=== PATIENT | male | born 1985 | race Caucasian/White ===

== ENCOUNTER 2021-04-26 08:10 | Emergency (ER) | payer MEDICARE, MEDICAID, SELFPAY ==
--- NOTE | ~2021-04-26 | XR_ITS ---
EXAMINATION: RIGHT HAND/WRIST, RIGHT ANKLE AND RIGHT FOOT. CLINICAL INFORMATION: Atraumatic pain COMPARISON: None TECHNIQUE: 4 views right hand/wrist. 3 views right foot. 2 views right ankle FINDINGS: Right hand/wrist: There is no acute fracture or dislocation. The PIP, DIP and MCP joints are normal. The intercarpal joints including the radioulnar carpal joint is normal. No bony abnormality. The soft tissues are normal. The scaphoid bone is normal. Right foot: There is no visible acute fracture, dislocation or subluxation seen. The joint spaces are maintained normal. The soft tissues are normal. Right ankle: There is no visible acute fracture, dislocation or subluxation. There is mild swelling along the talonavicular joint. XR/XR hand wrist RT IMPRESSION: Unremarkable right hand and wrist. The scaphoid bone is normal. Unremarkable right foot. Unremarkable right ankle exam except for small dorsal talonavicular spurring.
--- NOTE | ~2021-04-26 | XR_ITS ---
EXAMINATION: RIGHT HAND/WRIST, RIGHT ANKLE AND RIGHT FOOT. CLINICAL INFORMATION: Atraumatic pain COMPARISON: None TECHNIQUE: 4 views right hand/wrist. 3 views right foot. 2 views right ankle FINDINGS: Right hand/wrist: There is no acute fracture or dislocation. The PIP, DIP and MCP joints are normal. The intercarpal joints including the radioulnar carpal joint is normal. No bony abnormality. The soft tissues are normal. The scaphoid bone is normal. Right foot: There is no visible acute fracture, dislocation or subluxation seen. The joint spaces are maintained normal. The soft tissues are normal. Right ankle: There is no visible acute fracture, dislocation or subluxation. There is mild swelling along the talonavicular joint. XR/XR foot RT 2V IMPRESSION: Unremarkable right hand and wrist. The scaphoid bone is normal. Unremarkable right foot. Unremarkable right ankle exam except for small dorsal talonavicular spurring.
--- NOTE | ~2021-04-26 | XR_ITS ---
EXAMINATION: RIGHT HAND/WRIST, RIGHT ANKLE AND RIGHT FOOT. CLINICAL INFORMATION: Atraumatic pain COMPARISON: None TECHNIQUE: 4 views right hand/wrist. 3 views right foot. 2 views right ankle FINDINGS: Right hand/wrist: There is no acute fracture or dislocation. The PIP, DIP and MCP joints are normal. The intercarpal joints including the radioulnar carpal joint is normal. No bony abnormality. The soft tissues are normal. The scaphoid bone is normal. Right foot: There is no visible acute fracture, dislocation or subluxation seen. The joint spaces are maintained normal. The soft tissues are normal. Right ankle: There is no visible acute fracture, dislocation or subluxation. There is mild swelling along the talonavicular joint. XR/XR ankle RT 2V IMPRESSION: Unremarkable right hand and wrist. The scaphoid bone is normal. Unremarkable right foot. Unremarkable right ankle exam except for small dorsal talonavicular spurring.
[2021-04-26 08:13] VITALS: BP 124/73; PULSE 76; RESP 18; TEMP 36.7; O2SAT 98; BMI 25.8
--- NOTE | 2021-04-26 08:26 | ED_ITS ---
HPI - General Adult General Chief complaint: General Medical Stated complaint: right leg pain Time Seen by Provider: 04/26/21 08:17 Source: patient and EMS Mode of arrival: EMS Limitations: no limitations History of Present Illness HPI narrative: 35-year-old male with a past medical history of MS followed by a neurologist at [facility] presents today with right lower extremity pain. Patient tells me today wall walking he missed a step causing an injury to his right heel and ankle. He denies any fall. Denies head injury or loss of consciousness. Initially was complaining of weakness to nursing staff but denies any weakness, numbness or tingling. He is scheduled for a infusion 04/30 for his MS medication but is unsure of name. His neurologist is Jenaro Hernandez. Also complaining of right hand and wrist pain which he has had for years which is worsened in the morning when he wakes up and worsened by cold weather. He denies any numbness, tingling or weakness. Denies any injury or trauma. Related Data Allergies Allergy/AdvReac Type Severity Reaction Status Date / Time No Known Allergies Allergy Unverified 07/17/20 19:15 [No Known Allergies*] Review of Systems Review of Systems: Yes all other systems are reviewed and are negative Constitutional: Constitutional: Reports no additional constitutional complaints, Denies body ache(s), Denies chills, Denies fever(s), Denies headache(s) and Denies weakness Eyes: Eyes: Reports no additional eye complaints and Denies change in vision ENT: Reports system reviewed and no additional complaints, except as documented, Denies dizziness, Denies headache(s), Denies nasal congestion, Denies nasal discharge and Denies neck pain Cardiovascular: Cardiovascular: Reports no additional cardiovascular complaints, Denies chest pain, Denies leg edema and Denies dyspnea Respiratory: Respiratory: Reports no additional respiratory complaints, Denies cough and Denies dyspnea Gastrointestinal: Gastrointestinal: Reports no additional gastrointestinal complaints, Denies abdominal pain, Denies diarrhea, Denies nausea and Denies vomiting Genitourinary: Genitourinary: Denies urinary incontinence Musculoskeletal: Musculoskeletal: Reports no additional musculoskeletal complaints, Denies back pain, Reports arthralgias, Denies joint swelling, Denies limited range of motion, Denies neck pain, Denies numbness and Denies tingling Integumentary/Breasts: Skin/Breast: Reports system reviewed and no additional complaints, except as docu and Denies rash Neurologic: Reports system reviewed and no additional complaints, except as documented, Denies Abnormal speech present, Denies dizziness, Denies headache(s), Denies numbness, Denies tingling and Denies weakness PMFSH Past Medical History Attestation statement: The following information was validated with the patient. Source: old records reviewed and nursing notes reviewed Medical History Multiple sclerosis Social History Social History Alcohol intake: never Smoked in Last 30 Days: No Use of substances other than those prescribed or required for medical reasons: No Advance Directives: No Advance Directives Information Provided: No Physical Exam Vital Signs: Vital Signs: Last Vital Signs Temp 98.0 F 04/26/21 08:13 Pulse 76 04/26/21 08:13 Resp 18 04/26/21 08:13 BP 124/73 04/26/21 08:13 Pulse Ox 98 04/26/21 08:13 Body Mass Index 25.8 Const: General: cooperative, healthy appearing, comfortable and no acute distress Orientation/consciousness: patient oriented x3 Limitations: no limitations HENMT: Head: Yes normal to inspection Ears: hearing grossly normal bilaterally General nose exam: Normal external nose present Face and sinus: Yes normal facial exam Mouth: Normal oral and palatal mucosa present Throat: Yes posterior oropharynx normal Eyes: General: appearance normal, both eyes and all related structures Pupils: Equal, round and reactive pupils present Neck: Neck: Yes normal visual inspection Chest: Chest palpation & inspection: normal inspection of the chest Resp: Effort & Inspection: normal respiratory effort Auscultation: clear to auscultation bilaterally Cardio: Rate: regular rate Rhythm: regular rhythm Peripheral pulses: Peripheral pulses 2+ throughout GI: Inspection: Yes normal to inspection Palpation (GI): Soft to palpation and nontender Auscultation: normal bowel sounds Back/Spine/Pelvis: Thoracic/Lumbar Spine: thoracic and lumbar spine normal to inspection Skin: General skin exam: no rashes or lesions noted Neuro: General: patient oriented x3, no focal motor deficits and normal sensation to monofilament Cranial nerves: Yes CN's II-XII intact bilaterally, Yes Equal, round and reactive pupils present, Yes Bilaterally intact EOM present, Yes Nystagmus not present, Yes Normal facial strength present and Yes Midline tongue present Cognition (Neuro): normal cognition Speech: No Ab normal speech present Gait exam (Neuro): Normal gait present Motor exam (neuro): 5/5 motor strength present throughout Sensory Exam: Normal double simultaneous stimulation for sensation Extrem: Other: To the right anterior wrist there is tenderness with no appreciable swelling or deformity or warmth or redness. No weakness. FROM. Sensation intact. to the right heel and medial ankle there is tenderness with no swelling, deformity, warmth, redness. FROM. Sensation intact. General: Yes normal to inspection Course Course Course Narrative: 35-year-old male here with complaints of right ankle and heel pain after an injury which occurred this morning. Also complaining of acute on chronic right hand and wrist pain which he has had for quite some time with no previous injury. Normal neuro exam. NO weakness. Will check imaging. 0940-Imaging unremarkable. Likely sprain right foot/ankle. Right wrist film negative. ?arthritis but chronic >years. Recommended f/u with outpatient providers. Reviewed worrisome signs and symptoms and when to return to the emergency department. Comfortable discharge home. Procedures Procedure Narrative Procedure Narrative: caesar wrap right ankle/foot Medical Decision Making Medical Records Medical records reviewed: Yes I reviewed the patient's medical records. Lab Data Lab results reviewed: Yes I reviewed the patient's lab results. Imaging Data right/hand wrist: Attestation: I personally reviewed and interpreted this imaging study as follows: Radiologist's impression: FINDINGS: Right hand/wrist: There is no acute fracture or dislocation. The PIP, DIP and MCP joints are normal. The intercarpal joints including the radioulnar carpal joint is normal. No bony abnormality. The soft tissues are normal. The scaphoid bone is normal. right ankle/foot xray: Attestation: I personally reviewed and interpreted this imaging study as follows: Radiologist's impression: Right foot: There is no visible acute fracture, dislocation or subluxation seen. The joint spaces are maintained normal. The soft tissues are normal. Right ankle: There is no visible acute fracture, dislocation or subluxation. There is mild swelling along the talonavicular joint. Discharge Plan Discharge Clinical Impression: Chronic wrist pain Ankle sprain Qualifiers: Encounter type: initial encounter Laterality: right Foot sprain Qualifiers: Encounter type: initial encounter Laterality: right Qualified Code(s): S93.601A - Unspecified sprain of right foot, initial encounter Patient Disposition: Home, Self-Care Instructions: Ankle Sprain (ED), Foot Sprain (ED), Arthralgia (ED) Additional Instructions: Heat or ice Gentle stretching Caesar wrap for comfort Follow-up with your providers Referrals: [facility] [Primary Care Provider] - 2 days Interventions: ED Discharge Assessment Last Done: 04/26/21 09:48 Discharge Date/Time: 04/26/21 09:53
== END 2021-04-26 09:53 | disposition home or self-care (01) ==
PROVIDERS: Emergency Provider Emergency Medicine
DX: S93.601A Unspecified sprain of right foot, initial encounter (principal); G89.29 Other chronic pain; M25.531 Pain in right wrist; M79.641 Pain in right hand; G35 Multiple sclerosis; X58.XXXA Exposure to other specified factors, initial encounter; Y93.01 Activity, walking, marching and hiking; Y92.9 Unspecified place or not applicable; Y99.9 Unspecified external cause status
CPT/HCPCS: 73110; 73130; 73600; 73620; 99284; 99285

== ENCOUNTER 2024-04-13 14:57 | Outpatient (REF) | payer MEDICARE, MEDICAID, SELFPAY ==
[2024-04-13 16:17] LABS: MANUAL DIFF FLAG NO
[2024-04-13 16:24] LABS: Basophils Absolute Auto 0.1 X10*3/uL (0.0-0.2); Basophils Percent Auto 0.8 % (0-2); Eosinophils Percent Auto 0.5 % (0-4); Hematocrit 49.5 % (42.0-52.0); Hemoglobin 16.2 g/dl (14.0-18.0); Imm Gran Abs Auto 0.02 X10*3/uL (0.00-0.03); Imm Gran Pct Auto 0.2 % (0.0-0.4); Lymphocytes Absolute Auto 1.7 X10*3/uL (1.2-4.9); Lymphocytes Percent Auto 20.2 % (20-40); Mean Corpuscular HGB Conc 32.7 g/dl (31.0-36.0); Mean Corpuscular Hemoglobin 29.2 pg (27.0-33.0); Mean Corpuscular Volume 89.4 fL (80.0-98.0); Monocytes Absolute Auto 0.7 X10*3/uL (0.1-1.2); Monocytes Percent Auto 7.9 % (2-11); Neutrophils Absolute Auto 5.9 x10*3/uL (2.0-8.3); Neutrophils Percent Auto 70.4 % (45-73); Platelet Count 295 X10*3/uL (160-400); Red Blood Count 5.54 X10*6/uL (4.60-5.80); White Blood Count 8.4 X10*3/uL (4.8-10.8)
[2024-04-13 16:44] LABS: Alanine Aminotransferase 18 U/L (0-40); Albumin Level 4.9 g/dL (3.5-5.0); Alkaline Phosphatase 84 U/L (39-117); Aspartate Amino Transferase 15 U/L (5-37); Bilirubin Total 0.5 mg/dL (0.0-1.0); Blood Urea Nitrogen 10 mg/dL (9-16); Calcium 9.3 mg/dL (8.4-10.2); Carbon Dioxide 28 mmol/L (22-29); Chloride 103 mmol/L (96-108); Cholesterol 204 mg/dL (<200); Estimated Glomerular Filt Rate > 60; Glucose Random 99 mg/dL (60-115); HDL Cholesterol 40 mg/dL (>40); LDL Cholesterol Calculated 146 mg/dL (<100); Potassium 4.1 mmol/L (3.3-5.1); Sodium 141 mmol/L (135-145); Total Protein 7.2 g/dL (6.5-8.0); Triglycerides 92 mg/dL (<150)
[2024-04-13 16:58] LABS: Anion Gap 14 (12-20)
[2024-04-16 04:17] LABS: HIV AB/AG Nonreactive (Nonreactive); HIV Num 1 0.05 S/CO (0.00-0.99); ~HepC Num1 0.05 S/CO (0.00-0.79); ~Hepatitis C Antibody Nonreactive (Nonreactive)
== END 2024-04-13 14:58 | disposition home or self-care (01) ==
LOC: HO.HHCL 14:57
PROVIDERS: Visit Provider General Practice
DX: Z13.89 Encounter for screening for other disorder (principal)
CPT/HCPCS: 36415; 80053; 80061; 85025; 86803; 87389

== ENCOUNTER 2024-04-13 16:16 | Outpatient (REF) | payer OTHER, SELFPAY ==
[2024-04-14 02:46] LABS: CT PCR NOT DETECTED (Not Detect.); NG PCR NOT DETECTED (Not Detect.)
== END 2024-04-13 16:17 | disposition home or self-care (01) ==
LOC: HO.HHCL 16:16
PROVIDERS: Visit Provider General Practice
DX: Z00.00 Encounter for general adult medical examination without abnormal findings (principal)
CPT/HCPCS: 0353U; 36415; 80053; 80061; 85025; 86803; 87389

== ENCOUNTER 2024-06-08 15:14 | Emergency (ER) | payer OTHER, SELFPAY ==
--- NOTE | ~2024-06-08 | XR_ITS ---
EXAMINATION: Left middle digit CLINICAL INFORMATION: Laceration middle digit. COMPARISON: None available. TECHNIQUE: Frontal view of left hand. 2 cone-down views of the left middle digit. FINDINGS: Laceration of the distal middle digit soft tissues. No radiopaque foreign body. No osseous abnormality. Bone and joint are normal. XR/XR finger LT min 2V IMPRESSION: Laceration of the distal middle digit soft tissues. No radiopaque foreign body. No osseous abnormality.
[2024-06-08 15:26] VITALS: BP 124/78; PULSE 98; O2SAT 98
[2024-06-08 15:56] VITALS: BP 128/72; PULSE 88; RESP 18; TEMP 36.8; O2SAT 98; BMI 23.6
--- NOTE | 2024-06-08 15:58 | ED_ITS ---
HPI - Wound/Laceration General Chief Complaint: Wound/Laceration Stated Complaint: laceration to tip of finger Time Seen by Provider: 06/08/24 22:54 Source: patient Mode of arrival: ambulatory Limitations: no limitations History of Present Illness ED Provider: Dr. Gil Alexander HPI narrative: 38-year-old male with a history of multiple sclerosis who presents emergency department for evaluation of laceration to his left middle finger. The patient states he was chopping colic, slipped and accidentally cut the tip of his index finger. Patient was not know when his last tetanus shot was given. Related Data Allergies Allergy/AdvReac Type Severity Reaction Status Date / Time No Known Allergies Allergy Verified 06/08/24 16:00 [No Known Allergies*] PMFSH Past Medical History Medical History Multiple sclerosis Social History Social History Alcohol intake: never Advance Directives: No Advance Directives Information Provided: No Do you have a plan to hurt others: No Plan Physical Exam Vital Signs: Vital Signs: Last Vital Signs Temp 97.5 F 06/08/24 18:00 Pulse 70 06/08/24 18:00 Resp 16 06/08/24 18:00 BP 138/69 06/08/24 18:00 Pulse Ox 98 06/08/24 18:00 O2 Del Method Room Air 06/08/24 18:00 BMI result Body Mass Index 23.6 Vital signs were normal. Exam: Patient has a C-shaped laceration to the tip of his left index finger, it is a full skin thickness laceration measuring approximately 1.5 cm in length. Patient's fingers neurovascular intact to Course Course Course Narrative: This is an RME: Additional HPI, ROS, PE not included below will be deferred to primary provider. RME assessment and note performed by: Marychuy Flores PA-C This is a 38-year-old male, with a hx of MS, who presents to the ER with complaints of laceration to left third finger. Pt is right hand dominant. Was chopping garlic and accidentally lacerated his left third digit with a knife. Plan: xray, +/- sutures Medications Administered Discontinued Medications Generic Name Dose Route Start Last Admin Trade Name Freq PRN Reason Stop Dose Admin Diphtheria/Tetanus/Acell Pertussis 0.5 ml 06/08/24 18:42 06/08/24 19:24 Diphth,Pertus(Acell),Tet Adult 0.5 Ml Syringe IM 06/08/24 18:43 0.5 ml .ONCE ONE Administration Lidocaine HCl 5 ml 06/08/24 18:42 06/08/24 19:24 Lidocaine Hcl 1 % Mpf 5 Ml Vial INFILTRATI 06/08/24 18:43 5 ml ONCE ONE Administration Lidocaine HCl 5 ml 06/08/24 23:09 06/08/24 23:14 Lidocaine Hcl 1 % Mpf 5 Ml Vial INFILTRATI 06/08/24 23:10 5 ml ONCE STA Administration Medical Decision Making Medical Decision Making [facility] Narrative: 38-year-old male with a history of MS who presents emergency department for evaluation of laceration to the tip of his left middle finger. Vital signs were normal. Exam did reveal a C shaped laceration to the tip of the middle finger in his finger was neurovascularly intact. Differential diagnosis: ?Includes but is not limited to laceration, vascular injury, nerve injury, bone injury Course: : Patient's x-rays revealed no bony injury. Patient's laceration was repaired by me with 4.0 nylon sutures x7 sutures. Patient tolerated the procedure well. His tetanus status was updated with a Tdap. Wound was dressed with bacitracin and a nonstick gauze dressing. He was given printed and verbal instructions and discharged home Independent Interpretation I performed an independent interpretation of an: Plain X-Ray Interpretation: My interpretation of the patient's left middle finger x-ray is as follows: No acute fracture seen, no foreign bodies Radiology Impression Discussion of test interpretation with radiology: I have reviewed the radiologist's reading. Radiologist Impression: XR finger LT min 2V IMPRESSION: Laceration of the distal middle digit soft tissues. No radiopaque foreign body. No osseous abnormality. Dictated By: Shaheen Velasquez MD Chronic Conditions Patient?s care impacted by: Other (MS) Procedures Laceration Left middle finger 1.5 cm laceration: Site: hand (Middle finger) Side (If applicable): left Size (cm): 1.5 Description: other (c shapte) Depth: simple, single layer Local Anesthetic: lidocaine 1% (Digital) Amount of anesthesia used (mL): 5 Pre-repair: wound explored Skin layer closed with: nylon Size (cm): 4-0 Number of sutures: 7 Technique: simple, interrupted Discharge Plan Discharge Clinical Impression: Laceration of left middle finger Qualifiers: Encounter type: initial encounter Damage to nail status: without damage Foreign body presence: without foreign body Qualified Code(s): S61.213A - Laceration without foreign body of left middle finger without damage to nail, initial encounter Patient Disposition: Home, Self-Care Instructions: Laceration (ED) Additional Instructions: Your laceration was fixed with 7 stitches. The stitches need to stay in for 10- 14 days. The stitches can be removed by an urgent care clinic, your primary care doctor or the emergency department. Apply bacitracin twice a day until the stitches come out. Watch for signs of infection which include increased redness, increased sw elling, drainage of pus, increased pain or red streaks going away from the wound. If you think that wound is infected then please return to the emergency department for re-evaluation. Take ibuprofen 200 mg pills, 2 pills every 6 hours as needed for pain or fever. Take Tylenol (acetaminophen) 500 mg pills, 2 pills every 6 hours as needed for pain or fever. Follow-up with your doctor in 2 days. Please return to the emergency department if your symptoms get worse or if you develop any symptoms that are concerning to you. You did receive a tetanus, diptheria and Pertussin (Tdap) vaccination here in the emergency department. This vaccination is good for 5 years. You will need a booster vaccination between 5 and 10 years. Print Language: Icelandic
[2024-06-08 18:00] VITALS: BP 138/69; PULSE 70; RESP 16; TEMP 36.4; O2SAT 98
[2024-06-08] MEDS: Lidocaine HCl 1 % MPF 5 ML VIAL INFILTRATI ×2 (19:24→23:14)
[2024-06-08] MEDS: Diphth,Pertus(ACell),Tet Adult 0.5 ML SYRINGE IM (19:24)
[2024-06-09 00:07] VITALS: BP 128/72; PULSE 68; RESP 16; TEMP 36.9; O2SAT 98
== END 2024-06-09 00:08 | disposition home or self-care (01) ==
PROVIDERS: Emergency Provider Emergency Medicine Emergency Medical Services; PCP General Practice
DX: S61.213A Laceration without foreign body of left middle finger without damage to nail, initial encounter (principal); W26.0XXA Contact with knife, initial encounter; G35 Multiple sclerosis; Y93.G1 Activity, food preparation and clean up; Y92.9 Unspecified place or not applicable; Y99.9 Unspecified external cause status; Z23 Encounter for immunization
CPT/HCPCS: 12001; 73140; 90471; 90715; 99283; 99284

== ENCOUNTER 2025-01-03 10:07 | Outpatient (REF) | payer OTHER, SELFPAY ==
[2025-01-03 11:41] LABS: MANUAL DIFF FLAG NO
--- OUTSIDE RECORDS SUMMARY | 2025-01-03 11:50 | XMS_ITS | Encounter Summary ---
Author Organization [facility] Address [address] [place] [address] Care Team Providers Care Territory Manager General Sales Name Role Phone Yanira Lr Primary Care Provider [phone] Encounter Details Date Type Department Care Team (Late st Contact Info) Description 12/28/2024 Telephone [facility] [address] [place] [phone] Bartenders: Makeda Eddy LPN [facility] [place], [place] Social History Tobacco Use Types Packs/Day Years Used Date Smoking Tobacco: Former Cigarettes Q uit: 07/28/2016 Smokeless Tobacco: Never Comments:quit 2 years ago Alcohol Use Standard Drinks/Week Comments No 0 (1 standard drink = 0.6 oz pur e alcohol) Sex and Gender Information Value Date Recorded Sex Assigned at Male 09/07/2021 3:19 AM EST Legal Sex Male 9:07 AM EDT Gender Identity Male 04/26/2018 9:10 AM EDT Sexual Orientation Straight 09/07/2021 3: 19 AM EST Occupation Industry Job Start Date Job End Date disabled Not on file Not on file Not on file documented as of this encounter Miscellaneous Notes * Telephone Encounter - Makeda Wooten LPN - 12/28/2024 4:38 PM EST Patient notified * Telephone Encounter - Makeda Wooten LPN - 12/28/2024 10:02 AM EST He is looking for a different sleep med as his insurance will no longer cover the lunesta and he only has 2 pills left documented in this encounter Plan of Treatment Upcoming Encounters Date Type Department Care Team (Late st Contact Info) Description 04/22/2025 10:00 AM EDT Office Visit [facility] [address] [place] [address] Bartenders: Jenaro Dyson MD PhD [address] [place] [id number] 06/14/2025 9:30 AM EDT Infusion [facility] at [address] [address] documented as of this encounter Visit Diagnoses Not on filedocumented in this encounter Care Teams Territory Manager General Sales Relationship Specialty Start Date End Date Yanira Lr [address] [place] [address] PCP - General 04/16/24 documented as of this encounter
--- OUTSIDE RECORDS SUMMARY | 2025-01-03 11:50 | XMS_ITS | Referral Summary ---
Author Organization [facility] Address [address] [place] [address] Care Team Providers Care Bisque Finisher Name Role Phone Yanira Lr Primary Care Provider [phone] Encounters Date Type Department Care Team Description 12/29/2024 Refill [facility] [address] [place] [phone] Technical Support Representative: Jenaro Dyson MD PhD Multiple sclerosis (HCC) (Primary Dx) 12/28/2024 Orders Only [facility] [address] [place] [phone] Technical Support Representative: Jenaro Dyson MD PhD 12/28/2024 Telephone [facility] [address] [place] [address]26[address] Technical Support Representative: Makeda Eddy LPN 12/27/2024 Telephone [facility] [address] [place] [address]185 Technical Support Representative: Makeda Eddy LPN 12/24/2024 Telephone [facility] [address] [place] [address] [phone] Technical Support Representative: Heidi Álvarez LPN 12/14/2024 10:30 AM EST Infusion [facility] at [address] [address] Noy Montes RN Multiple sclerosis (HCC) (Primary Dx) 12/11/2024 Telephone [facility] [address] [place] [address] Technical Support Representative: Makeda Eddy LPN 12/11/2024 Telephone [facility] at [address] [address] Telephone Intake, Staff PAC Appt Request - Established 11/27/2024 Refill [facility] [address] [place] [address] 28752 Technical Support Representative: Jenaro Dyson MD PhD 11/01/2024 Telephone [facility] [address] [place] [address] 22675 Technical Support Representative: Heidi Álvarez LPN 10/30/2024 Orders Only [facility] [address] [place] [address]55 Technical Support Representative: Oliverio Bansal MD 10/30/2024 Refill [facility] [address] [place] [address]18 Technical Support Representative: Makeda Eddy LPN 10/26/2024 Telephone [facility] [address] [place] [address] 46098 Technical Support Representative: Makeda Eddy LPN 10/15/2024 8:00 AM [facility] Telehealth [facility] [address] [place] [address] 89256 Technical Support Representative: Jenaro Dyson MD PhD Multiple sclerosis (HCC) (Primary Dx) 10/12/2024 Orders Only [facility] [address] [place] [phone] Technical Support Representative: Jenaro Dyson MD PhD from Last 3 Months Allergies No known active allergies Medications melatonin 3 mg tablet Take by mouth nightly. Active lemborexant (Dayvigo) 10 mg tablet TAKE 1 TABLET BY MOUTH NIGHTLY NEEDED FOR INSOMNIA 30 tablet 5 11/27/19 25 Active zolpidem (AMBIEN) 10 mg tablet Take 1 tablet (10 mg total) by mouth nightly as needed for sleep. 30 tablet 5 12/28/19 25 Active modafiniL (PROVIGIL) 200 mg tabletIndicati ons:Multiple sclerosis (HCC) Take 1 tablet by mouth once daily 30 tablet 5 01/01/20 25 Active modafiniL (PROVIGIL) 200 mg tablet Take 1 tablet by mouth once daily 30 tablet 5 06/26/20 24 025 Discontinued eszopiclone (LUNESTA) 3 mg tablet Take 1 tablet (3 mg total) by mouth once a day. Take immediately before bedtime 30 tablet 5 10/30/20 24 025 Discontinued Active Problems Problem Noted Date Diagnosed Date Anxiety and depression 01/06/2021 Impaired functional mobility, balance, gait, and endurance 10/07/2020 Internuclear ophthalmoplegia of both eyes 2019 MS (multiple sclerosis) 07/27/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 07/21/2018 Optic neuritis, right 07/21/2018 Multiple sclerosis 04/24/2018 Social History Tobacco Use Types Packs/Day Years Used Date Smoking Tobacco: Former Cigarettes Q uit: 07/28/2016 Smokeless Tobacco: Never Tobacco Cessation:Counseling Given: Not Answered Comments:quit 2 years ago Alcohol Use Standard [...] file Not on file Not on file Last Filed Vital Signs Vital Sign Reading Time Taken Comments Blood Pressure 150/81 12/14/2024 10:23 AM EST Pulse 97 12/14/2024 10:23 AM EST Temperature 36.6 ??C (97.9 ??F) 12/14/2024 10:[address] Respiratory Rate 17 12/14/2024 10:23 AM EST Oxygen Saturation 97% 12/14/2024 10:23 AM EST Inhaled Oxygen Concentration - - Weight 81.4 kg (179 lb 6.4 oz) 12/14/2024 10:23 AM EST Height 180.3 cm (5' 11 ) 02/07/2019 10:36 AM EDT Body Mass Index 25.02 02/07/2019 10:36 AM EDT Plan of Treatment Upcoming Encounters Date Type Department Care Team (Late st Contact Info) Description 04/22/2025 10:00 AM EDT Office Visit [facility] [address] [place] [address]208 Technical Support Representative: Jenaro Dyson MD PhD [address] [place] [phone] 06/14/2025 9:30 AM EDT Infusion [facility] at [address] [address] Procedures * Due to [place] [employer] law, this organization might not be sharing negative HIV tests. Procedure Name Priority Date/Time Associated Diagnosis Comments IMAGING - SCANNED Routine 10/30/2024 11: 37 AM EST MRI THORACIC SPINE WO CONTRAST Routine 10/26/2024 4:15 PM EST Multiple sclerosis (HCC) AMB EXTERNAL MRI BRAIN, OUTSIDE RESULT Routine 10/12/2024 10:47 AM EST AMB EXTERNAL MRI C-SPINE, OUTSIDE RESULT Routine 10/12/2024 10:46 AM EST HEPATITIS PANEL, ACUTE Routine 03/17/2023 8:15 AM EDT Multiple sclerosis (HCC) from Last 3 Months or Most Recently Relevant to Health Maintenance Results * Due to [place] [employer] law, this organization might not be sharing negative HIV tests. * IMAGING - SCANNED (10/30/2024 11:37 AM EST) Anatomical Region Laterality Modality Other us Unknown Provider SCANNED PROCEDURES Final Res ult * MRI Thoracic Spine WO Contrast (10/26/2024 4:15 PM EST) Anatomical Region Laterality Modality Spine, T-spine Magnetic Resonan ce 10/26/2024 3:3 5 PM EST Narrative 10/29/2024 2:23 PM EST [facility] Accession Number: [id number] Patient Name: Alon Townsend Date of : 1985 Date of Exam: 10-26-2024 Referring Physician: Jenaro Hernandez ?[facility] ?[address] [place] [address] ?[place] [address] Exam: MR Thoracic Spine (C-) CPT 63847 Room Description: [facility] 3.0T HISTORY: MS monitoring. Follow-up. TECHNIQUE: Multiplanar multisequence MRI of the thoracic spine (MS) without contrast. COMPARISON: 12/16/2015 FINDINGS: Multiple images are degraded by patient motion which diminishes detail, and interpretation was made in light of this technical confine. The thoracic alignment is normal. The thoracic vertebral bodies are normal in height. Mild desiccation and loss of height of the T8-T9, T9-T10, and T12-L1 discs. Multiple T2 bright foci are distributed throughout the visualized thoracic spinal cord allowing for differences in technique and motion artifact on the prior and current examination, these are probably not significantly changed. There is no cord compression or cord expansion. The paraspinal soft tissues and visualized retroperitoneal structures are unremarkable. IMPRESSION: Multiple T2 bright lesions distributed throughout the thoracic spinal cord are present, which are probably not significantly changed when compared with the 12/16/2015 examination. Electronically Signed By: Andrew Gandhi MD Procedure Note Provider, Marysol - 10/29/2024 [facility] Accession Number: [id number] Patient Name: Alon Townsend Date of : 1985 Date of Exam: 10-26-2024 Referring Physician: Jenaro Hernandez [facility] [address] [place] [address] Exam: MR Thoracic Spine (C-) CPT 08833 Room Description: [facility] 3.0T HISTORY: MS monitoring. Follow-up. TECHNIQUE: Multiplanar multisequence MRI of the thoracic spine (MS) without contrast. COMPARISON: 12/16/2015 FINDINGS: Multiple images are degraded by patient motion which diminishes detail, and interpretation was made in light of this technical confine. The thoracic alignment is normal. The thoracic vertebral bodies are normal in height. Mild desiccation and loss of height of the T8-T9, T9-T10, and T12-L1 discs. Multiple T2 bright foci are distributed throughout the visualized thoracic spinal cord allowing for differences in technique and motion artifact on the prior and current examination, these are probably not significantly changed. There is no cord compression or cord expansion. The paraspinal soft tissues and visualized retroperitoneal structures are unremarkable. IMPRESSION: Multiple T2 bright lesions distributed throughout the thoracic spinal cord are present, which are probably not significantly changed when compared with the 12/16/2015 examination. Electronically Signed By: Andrew Gandhi MD Jenaro Hernandez MD PhD IMG MRI PROCEDURES Ginny l Result * MRI Brain, Outside Result (10/12/2024 10:47 AM EST) Anatomical Region Laterality Modality Other Jenaro Hernandez MD PhD AMB EXTERNAL RESULT PRO CEDURES Final Result * MRI C-Spine, Outside Result (10/12/2024 10:46 AM EST) Anatomical Region Laterality Modality Other Jenaro Hernandez MD PhD AMB EXTERNAL RESULT PRO CEDURES Final Result * Hepatitis Panel, Acute (03/17/2023 8:15 AM EDT) Hepatitis A IgM NON-REACT SHANNON NON-REACT SHANNON 03/17/2023 5:22 PM EDT [employer] [facility] Hepatitis B Surface Antigen NON-REACT SHANNON NON-REACT SHANNON 03/17/2023 5:22 PM EDT [employer] [facility] Hepatitis B Core Antibody NON-REACT SHANNON NON-REACT SHANNON 03/17/2023 5:22 PM EDT [facility] Hepatitis C Antibody NON-REACT SHANNON NON-REACT SHANNON 03/17/2023 5:22 PM EDT [facility] Signal To Cut-Off 0.04 <1.00 03/17/2023 5:22 PM EDT [facility] Comment: HCV antibody was non-reactive. There is no laboratory evidence of HCV infection. In most cases, no further action is required. However, if recent HCV exposure is suspected, a test for HCV RNA (test code 09182) is suggested. For additional information please refer to http://[employer].Humagade/faq/ZZX21b1 (This link is being provided for informational/ educational purposes only.) For additional information, please refer to http://[employer]ade/faq/HJP715 (This link is being provided for informational/ educational purposes only.) Blood Structure of peripheral vein / Unknown Venipuncture / Unknown 03/17/2023 8:15 AM EDT 03/17/2023 8:38 AM EDT [facility] - 03/17/2023 5:22 PM EDT [facility] Received Date: Jenaro Hernandez MD PhD LAB BLOOD ORDERABLES Fi nal Result [facility] [address] [facility], [place] [address], [facility] [address], [place] [address], from Last 3 Months or Most Recently Relevant to Health Maintenance Insurance [facility] Advance Directives Documents on File Type Date Recorded Patient Industrial Relations Commissioner Expl [facility] Health Care Proxy 07/28/2018 1:00 PM 07/28 * Full Code (Latest Code Status on File) Date Activated Date Inactivated Comments 07/27/2018 4:47 PM 07/28/2018 3:58 PM Care Teams Bisque Finisher Relationship Specialty Start Date End Date Yanira Lr [address] [place] [address] PCP - General 04/16/24
--- OUTSIDE RECORDS SUMMARY | 2025-01-03 11:50 | XMS_ITS | Patient Health Record ---
Author Organization [facility] Address [address] [place] [address] Care Team Providers Care Paving Supervisor Name Role Phone Justin MURILLO, Cruz Primary Care Provider JEMIMA Colon Unavailable [phone] Reason For Referral No Information Medications Medication SIG (Take, Route, Frequency, Duration) Notes Start Date End Date Status Mirtazapine 7.5 MG 1 tablet at bedtime Orally Once a day for 30 day(s) 01/12/2021 Active Ambien 5 MG 1 tablet at bedtime Orally Once a day Active Biotin 1 MG as directed Orally Once a day Active Modafinil 200 MG 1/2 to 1 tablet in the morning Orally Once a day Active Ocrelizumab 300 MG/10ML as directed Intravenous infuse 600mg intravenously next infusion march 2021 Active Cholecalciferol 50 MCG (2000 UT) 1 tablet Orally Once a day Active Cyanocobalamin 1000 MCG 1 tablet Orally Once a day for 30 day(s) Active Social History Tobacco Use: Social History Observation Description Date Details (start date - stop date) Former Smoker NA - NA Tobacco Use/Smoking Question Answer Notes Are you a former smoker Tobacco use other than smoking: Question Answer Notes Are you an other tobacco user? No Section Notes: Quit smoking 2 years ago. He has smoked marijuana since 14 years old. Social hx- He has 3 children- 3 yo, 7yo, 14 yo - currently, sees his younger kids frequently per him he was raised by his mom and grandparents, all now siblings- 2 brothers but not invovled in his life trouble in school from a young age, mom did not want him to be medicated for likely ADHD, not addressed as a kid. made it to 11th grade. denies difficulties with ETOH/drugs, but notes he overdid it as a young person, not using currently. Used marijuana in recent past but not currently. smoked marijuana regularly- sought out medical marijuana, didnt help, not using 4-5 year no cigs no marijuana doesnt work, on SSI, not on disability applying currently. Problems Problem Type SNOMED Code ICD Code Onset Dates Problem Status W/U Status Risk Notes Problem 93992295 Generalized anxi ety disorder (F41.1) Active confirmed Problem Multiple sclerosis (01925432) MS (multiple sclerosis) (G35) Active confirmed Problem 844252242 Moderate episode of recurrent major depressive 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) Active confirmed Problem 726880943 Psychophysiologi chayo insomnia (F51.04) Active confirmed Plan Of Treatment No Information Insurance Providers Payer Name Payer Address Payer Phone Subscriber Number Group Number Insured Name Patient Relationship to Insured Coverage Start Date Coverage End Date [facility] [address] [place] [phone] [id number] Alon Croft Self - patient is the insured Medical (General) History Medical History History ICD Code Multiple Scelerosis Surgical History Surgery Date(Month/Year) Hospitalization History Reason Date(Month/Year) ms
--- OUTSIDE RECORDS SUMMARY | 2025-01-03 11:50 | XMS_ITS | Encounter Summary ---
Author Organization [facility] Address [address] [place] [address] Care Team Providers Care Machine Shorthand Teacher Name Role Phone Yanira Lr Primary Care Provider [phone] Encounter Details Date Type Department Care Team (Late Contact Info) Description 03/08/2022 JW Player Message [facility] [address] [place] [address] [employer], Generic Provider [address] [place], [place] [phone] brain and neck mri Social History Tobacco Use Types Packs/Day Years [...] on file documented as of this encounter Plan of Treatment Upcoming Encounters Date Type Department Care Team (Late st Contact Info) Description 04/22/2025 10:00 AM EDT Office Visit [facility] [address] [place] [address] Patternmaker Sample: Jenaro Dyson MD PhD [address] [place], [place] [phone] 06/14/2025 9:30 AM EDT Infusion [facility] at [address] [address] documented as of this encounter Visit Diagnoses Not on filedocumented in this encounter Care Teams Machine Shorthand Teacher Relationship Specialty Start Date End Date Yanira Lr [address] [place] [address] PCP - General 04/16/24 documented as of this encounter
--- OUTSIDE RECORDS SUMMARY | 2025-01-03 11:50 | XMS_ITS | Encounter Summary ---
Author Organization [facility] Address [address] [place] [address] Care Team Providers Care Help Aid Name Role Phone Yanira Lr Primary Care Provider [phone] Encounter Details Date Type Department Care Team (Late Contact Info) Description 04/28/2021 Orders Only [facility] [address] [place] [address] Terrie Virgen, PharmD Social History Tobacco Use Types Packs/Day Years [...] Encounters Date Type Department Care Team (Late Contact Info) Description 04/22/2025 10:00 AM EDT Office Visit [facility] [address] [place] [address] Resource Conservationist: Jenaro Dyson MD PhD [address] [place] [address] 06/14/2025 9:30 AM EDT Infusion [facility] at [facility] [address] [place] [address] documented as of this encounter Visit Diagnoses Not on filedocumented in this encounter Care Teams Help Aid Relationship Specialty Start Date End Date Yanira Lr [address] [place] [address] PCP - General 04/16/24 documented as of this encounter
--- OUTSIDE RECORDS SUMMARY | 2025-01-03 11:50 | XMS_ITS | Clinical Summary ---
Author Organization [facility] Address [address] [place] [address] Care Team Providers Care Glue Maker Name Role Phone Yanira Lr Primary Care Provider [phone] Allergies No known active allergies Medications melatonin [...] Optic neuritis, right 07/21/2018 Multiple sclerosis 04/24/2018 Encounters Date Type Department Care Team Description 12/29/2024 Refill [facility] [address] [place] [address] Anatomical Embalmer: Jenaro Dyson MD PhD Multiple sclerosis (HCC) (Primary Dx) 12/28/2024 Orders Only [facility] [address] [place] [address] Anatomical Embalmer: Jenaro Dyson MD PhD 12/28/2024 Telephone [facility] [address] [place] [address] Anatomical Embalmer: Makeda Eddy LPN 12/27/2024 Telephone [facility] [address] [place] [address] Anatomical Embalmer: Makeda Eddy LPN 12/24/2024 Telephone [facility] [address] [place] [address] Anatomical Embalmer: Heidi Álvarez LPN 12/14/2024 10:30 AM EST Infusion [facility] at [address] [address] Noy Montes RN Multiple sclerosis (HCC) (Primary Dx) 12/11/2024 Telephone [facility] [address] [place] [address] Anatomical Embalmer: Makeda Eddy LPN 12/11/2024 Telephone [facility] at [address] [address] Telephone Intake, Staff PAC Appt Request - Established 11/27/2024 Refill [facility] [address] [place] [address] Anatomical Embalmer: Jenaro Dyson MD PhD 11/01/2024 Telephone [facility] [address] [place] [address] Anatomical Embalmer: Heidi Álvarez LPN 10/30/2024 Orders Only [facility] [address] [place] [address] Anatomical Embalmer: Oliverio Bansal MD 10/30/2024 Refill [facility] [address] [place] [address] Anatomical Embalmer: Makeda Eddy LPN 10/26/2024 Telephone [facility] [address] [place] [address] Anatomical Embalmer: Makeda Eddy LPN 10/15/2024 8:00 AM EST Telehealth [facility] [address] [place] [address] Anatomical Embalmer: Jenaro Dyson MD PhD Multiple sclerosis (HCC) (Primary Dx) 10/12/2024 Orders Only [facility] [address] [place] [address] Anatomical Embalmer: Jenaro Dyson MD PhD from Last 3 Months Family History Medical History Relation Name Comments No Known Problems Father No Known Problems Mother Relation Name Status Comments Father Mother Social History Tobacco Use Types Packs/Day Years [...] Description 04/22/2025 10:00 AM EDT Office Visit [facility] [address] [place] [address] Anatomical Embalmer: Jenaro Dyson MD PhD [address] [place] [address] 06/14/2025 9:30 AM EDT Infusion [facility] at [address] [address] Health Maintenance Due Date Last Done Comments Varicella Vaccines (1 of 2 - 13+ 2-dose series) 1999 Hepatitis B Vaccines (1 of 3 - 19+ 3-dose series) 2005 COVID-19 Vaccine (3 - 2023-2 5 season) 2024 03/26/2021, 02/26/2021 Influenza Vaccine (#1) 2024 , 12/16/2015 Alcohol/Substance Use Screening 10/31/2024 Depression Evaluation 10/31/2024 Social Drivers of Health Annual Screening 10/31/2024 DTaP,Tdap,and Td Vaccines (3 - Td or Tdap) 06/08/2034 06/08/2024, 06/29/2016 RSV Vaccine (60+ years old and patients) (1 - 1-dose 75+ series) 2061 Pneumococcal Vaccine: Pediatric (0-5 Years) and At-Risk Patients (6-50 Years) Aged Out 12/16/2015 No longer eligible based on patient's age to complete this topic HIV Screening Completed 04/13/2024 Hepatitis C Screening Completed 04/13/2024 , 03/17/2023, 04/26/2018 Procedures * Due to [place] [employer] law, this organization might not be sharing [...] to Health Maintenance Results * Due to [place] [employer] law, this organization might not be sharing negative HIV tests. * IMAGING - SCANNED (10/30/2024 11:37 AM EST) Anatomical Region Laterality Modality Other us Unknown Provider SCANNED PROCEDURES Final Res ult * MRI Thoracic Spine WO Contrast (10/26/2024 4:15 PM EST) Anatomical Region Laterality Modality Spine, T-spine Magnetic Resonan ce 10/26/2024 3:35 PM EST Narrative 10/29/2024 2:23 PM EST [facility] Accession Number: [id number] Patient Name: Alon Townsend Date of : 1985 Date of Exam: 10-26-2024 Referring Physician: Jenaro Hernandez ?[facility] ?[address] [place] [address] ?[place] [address] Exam: MR Thoracic Spine (C-) CPT 17004 Room Description: [facility] Verio 3.0T HISTORY: MS monitoring. Follow-up. TECHNIQUE: Multiplanar [...] MD Procedure Note Provider, Marysol - 10/29/2024 [facility] Accession Number: [id number] Patient Name: Alon Townsend Date of : 1985 Date of Exam: 10-26-2024 Referring Physician: Jenaro Hernandez [facility] [address] [place] [address] Exam: MR Thoracic Spine (C-) CPT 11856 Room Description: [facility] [employer] Verio 3.0T HISTORY: MS monitoring. Follow-up. TECHNIQUE: Multiplanar [...] SHANNON NON-REACT SHANNON 03/17/2023 5:22 PM EDT [facility] Hepatitis B Surface Antigen NON-REACT SHANNON NON-REACT SHANNON 03/17/2023 5:22 PM EDT [facility] Hepatitis B Core Antibody NON-REACT SHANNON NON-REACT SHANNON 03/17/2023 5:22 PM EDT [facility] Hepatitis C Antibody NON-REACT SHANNON NON-REACT SHANNON 03/17/2023 5:22 PM EDT [facility] Signal To Cut-Off 0.04 <1.00 03/17/2023 5:22 PM EDT [facility] Comment: HCV antibody was non-reactive. There is no laboratory evidence of HCV infection. In most cases, no further action is required. However, if recent HCV exposure is suspected, a test for HCV RNA (test code 68489) is suggested. For additional information please refer to http://RetSKU.[employer]/faq/JCA15r9 (This link is being provided for informational/ educational purposes only.) For additional information, please refer to http://RetSKU.P[employer]bee.[employer]kota/faq/PYI539 (This link is being provided for informational/ educational purposes only.) Blood Structure of peripheral vein / Unknown Venipuncture / Unknown 03/17/2023 8:15 AM EDT 03/17/2023 8:38 AM EDT Narrative ANTON WATSON - 03/17/2023 5:22 PM EDT [facility] Received Date: us Jenaro Hernandez MD PhD LAB BLOOD ORDERABLES Fi nal Result [facility] [address], [place] [address], [place] [phone] [facility] [address], [place] [address], [place] [phone] from Last 3 Months or Most Recently Relevant to Health Maintenance Insurance [facility] [place] [id number] Advance Directives Documents on File Type Date Recorded Patient Oil And Gas Field Technician Expl anation Health Care Proxy 07/28/2018 1:00 PM 07/28 * Full Code (Latest Code Status on File) Date Activated Date Inactivated Comments 07/27/2018 4:47 PM 07/28/2018 3:58 PM Care Teams Glue Maker Relationship Specialty Start Date End Date Yanira Lr [address] [place] [address] PCP - General 04/16/24
--- OUTSIDE RECORDS SUMMARY | 2025-01-03 11:50 | XMS_ITS | Encounter Summary ---
Author Organization [facility] Address [address] [place] [address] Care Team Providers Care Director Of Operations Home Health Name Role Phone Yanira Lr Primary Care Provider [phone] Reason for Visit * Episode Based Medications (Routine) - Authorized Specialty Diagnoses / Procedures Referred By Darlene patel Referred To Contact Diagnoses MS (multiple sclerosis) (HCC) Jenaro Hernandez MD PhD [address] [place] [address] Phone: tel: fax: [facility] at [address] [address] Phone: tel: fax: Referral ID Status Reason Start Date Expiration Date V isits Requested Visits Authorized [id number] Authorized 06/12/2020 09/22/2025 6 201 Encounter Details Date Type Department Care Team (Late st Contact Info) Description 12/14/2024 10:30 AM EST Infusion [facility] at [address] [address] Noy Montes, RN Multiple sclerosis (HCC) (Primary Dx) Social History Tobacco Use Types Packs/Day Years [...] on file documented as of this encounter Last Filed Vital Signs Vital Sign Reading [...] 6.4 oz) 12/14/2024 10:23 AM EST Height - - Body Mass Index 25.02 02/07/2019 10:36 AM EDT documented in this encounter Nursing Notes * Noy Montes RN - 12/14/2024 10:30 AM EST Regan Garcia is here for maintenance ocrevus treatment. The pt denies any issue from last dose of therapy. No signs of illness or antibiotic use in the last 2 weeks. Pt declined benadryl prior toinfusion. Pt was educated on allergic reaction and he verbalized understanding. Alon Croft was monitored every 15 mins throughout therapy. IV intact and no signs of redness, swelling or pain. Pt refused to stay for a 30 minute post infusion monitoring period due to long drive home. They will return in 6 months for next treatment. AVS provided. Tolerated rapid rate well. documented in this encounter Plan of Treatment Upcoming Encounters Date Type Department Care Team (Late st Contact Info) Description 04/22/2025 10:00 AM EDT Office Visit [facility] [address] [place] [address] [id number] Medicaid Biller: Jenaro Dyson MD PhD [address] [place] [address] 06/14/2025 9:30 AM EDT Infusion [facility] at [address] [address] documented as of this encounter Visit Diagnoses Diagnosis Multiple sclerosis (HCC)- Primary Multiple sclerosis documented in this encounter Administered Medications Inactive Administered Medications - up to 3 most recent administrations Medication Order MAR Action Action Date Dose Rate Site acetaminophen (TYLENOL) tablet 975 mg 975 mg, oral, Once, On Tue12/14/24 at 1045, 1 dose, Administer 30 minutes prior to infusion.Indications:Multip le sclerosis (HCC) Given 12/14/2024 10:39 AM EST 975 mg methylPREDNISolone sodium succinate (SOLU-Medrol) injection 100 mg 100 mg, intravenous, Once, On Tue12/14/24 at 1045, 1 dose, Administer 30 minutes prior to infusionIndications:Multipl e sclerosis (HCC) Given 12/14/2024 10:40 AM EST 100 mg ocrelizumab (OCREVUS) 600 mg in 0.9% NaCl 500 mL infusion 600 mg, intravenous, Once, On Tue12/14/24 at 1115, 1 dose, See ocrelizumab admin chart. Use 0.22 micron filter.Indications:Multiple sclerosis (HCC) New Bag/Syringe 12/14/2024 11:11 AM EST 600 mg sodium chloride 0.9% (NS) premix infusion 250 mL, intravenous, at 20 mL/hr, Once, On Tue12/14/24 at 1045, 1 doseIndications:Multiple sclerosis (HCC) New Bag/Syringe 12/14/2024 10:38 AM EST 250 mL 20 mL/hr documented in this encounter Care Teams Director Of Operations Home Health Relationship Specialty Start Date End Date Yanira Lr [address] [place] [address] PCP - General 04/16/24 documented as of this encounter
--- OUTSIDE RECORDS SUMMARY | 2025-01-03 11:50 | XMS_ITS | Encounter Summary ---
Author Organization [employer] Address [address] [place] [address] Care Team Providers Care Offender Job Retention Specialist Name Role Phone Yanira Lr MD Primary Care Provider [phone] Encounter Details Date Type Department Care Team (Latest Contact Info) Description 12/20/2024 Travel Social History Tobacco Use Types Packs/Day Years Used Date Smoking Tobacco: Never Smokeless Tobacco: Never Alcohol Answer Date Recorded Frequency of Alcohol Consumption Not on file 04/13/2024 Average Number of Drinks Not on file 024 Frequency of Binge Drinking Not on file 03/31 Score 0 04/13/2024 Depression Answer Date Recorded Patient Health Questionnaire-9 Score 17 04/13/2024 Patient Health Questionnaire-9 Score 17 04/13/2024 Last PHQ-9: Questionnaire Data Not on file 0 04/13/2024 Housing Stability Answer Date Recorded What is your housing situation today? I have james agarwal 04/03/[address] you li ve. Do you have problems with any of the following? None of the above 04/03/2024 Food Insecurity Answer Date Recorded Within the past 12 months, y ou worried that your food would run out before you got money to buy more: Never True 04/03/2024 Within the past 12 months,th e food you bought just didn't last and you didn't have enough money to get more: Never True 01/2024 Transportation Answer Date Recorded In the past 12 months, has l ack of transportation kept you from medical appts, meetings, work or from getting things needed for daily living? No 04/13/2024 Utilities Answer Date Recorded In the past 12 months, has t he electric, gas, oil or water company threatened to shut off services in your home? No 04/03/2024 Depression Answer Date Recorded Patient Health Questionnaire-2 Score 6 04/13/2024 Internet Access Answer Date Recorded Internet Access Q1 Yes 11/20/2024 Internet Access Q2 Not on file 11/20/2024 Sex and Gender Information Value Date Recorded Sex Assigned at Male 08/30/2022 10:31 AM EDT Legal Sex Male 10:31 AM EDT Gender Identity Male 08/30/2022 10:31 AM EDT Sexual Orientation Straight 08/30/2022 10 :31 AM EDT documented as of this encounter Plan of Treatment Upcoming Encounters Date Type Department Care Team (Late st Contact Info) Description 02/13/2025 3:45 PM EDT Office Visit [facility] [address] [place] [address] Yanira Lr MD [address] [place] [address] 06/25/2025 10:00 AM EDT Office Visit [facility] [address] [place] [address] Renny, Angy [address] [place] [address] documented as of this encounter Visit Diagnoses Not on filedocumented in this encounter Additional Health Concerns Assessment Noted Time PHQ-9 Depression Total Score: 17 024 3:51 PM EDT documented as of this encounter Care Teams Offender Job Retention Specialist Relationship Specialty Start Date End Date Yanira Lr MD [address] [place] [address] PCP - General Family Medicine 01/24/24 documented as of this encounter
--- OUTSIDE RECORDS SUMMARY | 2025-01-03 11:50 | XMS_ITS | Encounter Summary ---
Author Organization [employer] Address [address] [place] [address] Care Team Providers Care Senior Mechanical Project Engineer Name Role Phone Yanira Lr MD Primary Care Provider [phone] Encounter Details Date Type Department Care Team (Late st Contact Info) Description 12/28/2024 Orders Only [facility] [address] [place], [place] [phone] Yanira Lr MD [address] [place], [place] [phone] Relapsing remitting multiple sclerosis (CMS/HCC) (Primary Dx); Psychophysiological insomnia Social History Tobacco Use Types Packs/Day Years [...] Description 02/13/2025 3:45 PM EDT Office Visit [facility] [address] [place] [address] Yanira Lr MD [address] [place] [address] 06/25/2025 10:00 AM EDT Office Visit [facility] [address] [place] [address] Angy Lawson [address] [place] [address] Scheduled Orders Name Type Priority Associated Diagnoses Orde r Schedule Comprehensive Metabolic Panel Lab Routine Relapsing remitting multiple sclerosis (CMS/HCC) Expected: 12/28/2024 (Approximate), Expires: 12/28/2025 TSH W/Reflex to FT4 Lab Routine Psychophysiological insomnia Expected: 12/28/2024 (Approximate), Expires: 12/28/2025 CBC auto differential Lab Routine Relapsing remitting multiple sclerosis (CMS/HCC) Expected: 12/28/2024 (Approximate), Expires: 12/28/2025 Lipid Panel, Standard Lab Routine Relapsing remitting multiple sclerosis (CMS/HCC) Expected: 12/28/2024 (Approximate), Expires: 12/28/2025 documented as of this encounter Visit Diagnoses Diagnosis Relapsing remitting multiple sclerosis (CMS/HCC)- Primary Multiple sclerosis Psychophysiological insomnia Persistent disorder of initiating or maintaining sleep documented in this encounter Additional Health Concerns Assessment Noted Time PHQ-9 Depression Total Score: 17 024 3:51 PM EDT documented as of this encounter Care Teams Senior Mechanical Project Engineer Relationship Specialty Start Date End Date Yanira Lr MD [address] [place] [address] PCP - General Family Medicine 01/24/24 documented as of this encounter
--- OUTSIDE RECORDS SUMMARY | 2025-01-03 11:50 | XMS_ITS | Encounter Summary ---
Author Organization [facility] Address [address] [place] [address] Care Team Providers Care Millinery Salesperson Name Role Phone Yanira Lr Primary Care Provider [phone] Encounter Details Date Type Department Care Team (Late Contact Info) Description 12/28/2024 Orders Only [facility] [address] [place] [phone] Ham Smoker: Jenaro Dyson MD PhD [address] [place] [address] [phone] Social History Tobacco Use Types Packs/Day Years [...] Description 04/22/2025 10:00 AM EDT Office Visit [facility] [address] [place] [address] Ham Smoker: Jenaro Dyson MD PhD [address] [place] [address] 06/14/2025 9:30 AM EDT Infusion [facility] at [address] [address] documented as of this encounter Visit Diagnoses Not on filedocumented in this encounter Care Teams Millinery Salesperson Relationship Specialty Start Date End Date Yanira Lr [address] [place] [address] PCP - General 04/16/24 documented as of this encounter
--- OUTSIDE RECORDS SUMMARY | 2025-01-03 11:50 | XMS_ITS | Encounter Summary ---
Author Organization [facility] Address [address] [place] [address] Care Team Providers Care Load Tallier Name Role Phone Yanira Lr Primary Care Provider [phone] Encounter Details Date Type Department Care Team (Late Contact Info) Description 12/24/2024 Telephone [facility] [address] [place] [address] Dynamite Shooter: Heidi Álvarez LPN Social History Tobacco Use Types Packs/Day Years [...] encounter Miscellaneous Notes * Telephone Encounter - Heidi Lambert LPN - 12/24/2024 3:06 PM EST Hanna from [employer] stated that we need to obtain prior auth for his Ocrevus under cover my meds. The [employer] # [id number]. Please help with a PA so they can schedule a home infusion for him. Thank you. Please advise. documented in this encounter Plan of Treatment Upcoming Encounters Date Type Department Care Team (Late st Contact Info) Description 04/22/2025 10:00 AM EDT Office Visit [facility] [address] [place] [address] Dynamite Shooter: Jenaro Dyson MD PhD [address] [place] [address] 06/14/2025 9:30 AM EDT Infusion [facility] at [address] [address] documented as of this encounter Visit Diagnoses Not on filedocumented in this encounter Care Teams Load Tallier Relationship Specialty Start Date End Date Yanira Lr [address] [place] [address] PCP - General 04/16/24 documented as of this encounter
--- OUTSIDE RECORDS SUMMARY | 2025-01-03 11:50 | XMS_ITS | Encounter Summary ---
Author Organization [employer] Address [address] [place] [address] Care Team Providers Care Journal Entry Audit Clerk Name Role Phone Yanira Lr MD Primary Care Provider [phone] Reason for Visit * Reason Comments Dentures Encounter Details Date Type Department Care Team ([facility] st Contact Info) Description 12/20/2024 2:30 PM EST Office Visit [facility] [address] [place], [place] [phone] Familia Lilly, BRE [address] [place], [place] [phone] Social History Tobacco Use Types Packs/Day Years [...] AM EDT documented as of this encounter Progress Notes * Familia Lilly DMD - 12/20/2024 2:30 PM EST Teeth try in of lower flipper replacing #19. Pt likes the esthetic and feels fine [place]: Delivery of lower flipper Kelly documented in this encounter Plan of Treatment Upcoming Encounters Date Type Department Care Team (Late st Contact Info) Description 02/13/2025 3:45 PM EDT Office Visit [facility] [address] [place] [address] Yanira Lr MD [address] [place] [address] 06/25/2025 10:00 AM EDT Office Visit [facility]ULT D[facility] [address] [place] [address] Angy Lawson [address] [place] [address] documented as of this encounter Procedures Procedure Name Priority Date/Time Associated Diagnosis Comments WAX TRY IN Routine 12/20/2024 2:30 PM EST documented in this encounter Visit Diagnoses Not on filedocumented in this encounter Additional Health Concerns Assessment Noted Time PHQ-9 Depression Total Score: 17 024 3:51 PM EDT documented as of this encounter Care Teams Journal Entry Audit Clerk Relationship Specialty Start Date End Date Yanira Lr MD [address] [place] [address] PCP - General Family Medicine 01/24/24 documented as of this encounter
--- OUTSIDE RECORDS SUMMARY | 2025-01-03 11:50 | XMS_ITS | Encounter Summary ---
Author Organization [employer] Address [address] [facility] [address] [facility] [address] 7[address] [place] [address] Care Team Providers Care Quality Supervisor Name Role Phone Yanira Lr MD Primary Care Provider [phone] Reason for Visit * Reason Comments Dentures Routine Cleaning Encounter Details Date Type Department Care Team ([facility] st Contact Info) Description 12/20/2024 3:00 PM EST Office Visit [facility] [address] [place] [address] Renny, Angy [address] [place] [address] Dental plaque (Primary Dx) Social History Tobacco Use Types [...] AM EDT documented as of this encounter Last Filed Vital Signs Vital Sign Reading Time Taken Comments Blood Pressure 134/84 12/20/2024 2:46 PM EST Pulse - - Temperature - - Respiratory Rate - - Oxygen Saturation - - Inhaled Oxygen Concentration - - Weight - - Height - - Body Mass Index - - documented in this encounter Progress Notes * Angy Renny - 12/20/2024 3:00 PM EST Patient ID: Alon Croft is a 39 y.o. male. Time Out: Timeout Date: 12/20/24, Timeout Time: 1448 (prophy) Location: [facility] Tooth: Maxilla and Mandible Procedure: Prophylaxis Verified the above with patient, sociology research assistant, and provider. Confirmed via patient's chart, intraorally and by radiographs. Filer Finish: not applicable Medical Hx: Vitals: Blood pressure 134/84. Medications, Med Hx reviewed with patient and updated in chart. Treatment Provided Dental procedures in this visit D1110 - PROPHYLAXIS - ADULT (Completed) Service provider: Angy Demarco provider: Familia Mckeon DMD D1206 - TOPICAL APPLICATION OF FLUORIDE VARNISH (Completed) Service provider: Angy Demarco provider: Familia Mckeon DMD D1330 - ORAL HYGIENE INSTRUCTIONS (Completed) Service provider: Angy Demarco provider: Familia Mckeon DMD D9450 - CASE PRESENTATION, DETAILED AND EXTENSIVE TREATMENT PLANNING (Completed) Service provider: Angy Demarco provider: Familia Mckeon DMD D5110 - WAX TRY IN (Completed) Service provider: Familia Mckeon DMD Billing provider: Familia Mckeon DMD Instruments Used: Ultrasonic Scalers and Prophy angle Fluoride: 5% NaF varnish applied and POI given Oral Cancer Screening: No lesions Head/Neck Exam: No Lesions Calculus: None Plaque: Light Stain: discolored exposed roots Bleeding: None Gingiva: pink with generalized recession OH: Good Perio Chart: not due yet Oral hygiene instructions provided to patient including brushing technique and flossing. Recommendations: Rector two times daily, modified lawler technique, Floss daily, Soft bristle toothbrush, Rector Tongue, Anti-sensitivity toothpaste, extra soft tooth brush. Recall Frequency: 6 mo for x-rays P. Exam, prophy perio chart NV: dr mckeon for restorations and partial denture delivery. Hygienist: Angy Lawson RDH * Familia Mckeon DMD - 12/20/2024 3:00 PM EST Teeth try in of lower flipper replacing #19. Pt likes the esthetic and feels fine NV: Delivery of lower flipper Kelly documented in this encounter Plan of Treatment Upcoming Encounters Date Type Department Care Team (Late st Contact Info) Description 02/13/2025 3:45 PM EDT Office Visit [facility] [address] [place] [address] Yanira Lr MD [address] [place] [address] 06/25/2025 10:00 AM EDT Office Visit [facility] [address] [place] [address] Angy Lawson [address] [place] [address] Scheduled Orders Name Type Priority Associated Diagnoses Orde r Schedule BITEWINGS - 4 RADIOGRAPHIC IMAGES Dental Routine 1 Occurrence s starting 12/20/2024 INTRAORAL - PERIAPICAL FIRST RADIOGRAPHIC IMAGE Dental Routine 1 Occur rences starting 12/20/2024 INTRAORAL - PERIAPICAL EACH ADDITIONAL RADIOGRAPHIC IMAGE Dental Routine 1 Occurrences starting 12/20/2024 TOPICAL APPLICATION OF FLUORIDE VARNISH Dental Routine 1 Occurrences s tarting 12/20/2024 CASE PRESENTATION, DETAILED AND EXTENSIVE TREATMENT PLANNING Dental Routine 1 Occurrences starting 12/20/2024 documented as of this encounter Procedures Procedure Name Priority Date/Time Associated Diagnosis Comments WAX TRY IN Routine 12/20/2024 3:00 PM EST TOPICAL APPLICATION OF FLUORIDE VARNISH Routine 12/20/2024 3:00 PM EST Dental plaque PROPHYLAXIS - ADULT Routine 12/20/2024 3 :00 PM EST Dental plaque ORAL HYGIENE INSTRUCTIONS Routine 2024 3:00 PM EST Dental plaque CASE PRESENTATION, DETAILED AND EXTENSIVE TREATMENT PLANNING Routine 12/20/2024 3:00 PM EST Dental plaque documented in this encounter Visit Diagnoses Diagnosis Dental plaque- Primary Accretions on teeth documented in this encounter Additional Health Concerns Assessment Noted Time PHQ-9 Depression Total Score: 17 06/14/2 024 3:51 PM EDT documented as of this encounter Care Teams Quality Supervisor Relationship Specialty Start Date End Date Yanira Lr MD [address] [place] [address] PCP - General Family Medicine 01/24/24 documented as of this encounter
--- OUTSIDE RECORDS SUMMARY | 2025-01-03 11:50 | XMS_ITS | Encounter Summary ---
Author Organization [employer] Address [address] [facility] 7t [place] [address] Care Team Providers Care Physician Anesthesiologist Name Role Phone Yanira Lr MD Primary Care Provider [phone] Reason for Visit * Reason Comments Dentures Encounter Details Date Type Department Care Team ([facility] st Contact Info) Description 01/03/2025 10:30 AM EST Office Visit [facility]ULT [facility] [address] [place], [place] [phone] Familia Lilly, BRE [address] [place], [place] [phone] Social History Tobacco Use Types Packs/Day Years [...] Progress Notes * Familia Lilly DMD - 01/03/2025 10:30 AM EST Delivery of /P. Pt likes the esthetic NV: prophy, recall exam Recommend pt to have implant supporting crown #19. Pt will consider this option Kelly documented in this encounter Plan of Treatment Upcoming Encounters Date Type Department Care Team (Late st Contact Info) Description 02/13/2025 3:45 PM EDT Office Visit [facility] [address] [place] [address] Yanira Lr MD [address] [place] [address] 06/25/2025 10:00 AM EDT Office Visit [facility] [address] [place] [address] Angy Lawson [address] [place] [address] documented as of this encounter Procedures Procedure Name Priority Date/Time Associated Diagnosis Comments 19 MANDIBULAR PARTIAL DENTURE - RESIN BASE (INCLUDING, RETENTIVE/CLASPING MATERIALS, RESTS, AND TEETH) Routine 01/03/2025 10:30 AM EST CASE PRESENTATION, DETAILED AND EXTENSIVE TREATMENT PLANNING Routine 01/03/2025 10:30 AM EST documented in this encounter Visit Diagnoses Not on filedocumented in this encounter Additional Health Concerns Assessment Noted Time PHQ-9 Depression Total Score: 17 024 3:51 PM EDT documented as of this encounter Care Teams Physician Anesthesiologist Relationship Specialty Start Date End Date Yanira Lr MD [address] [place] [address] PCP - General Family Medicine 01/24/24 documented as of this encounter
--- OUTSIDE RECORDS SUMMARY | 2025-01-03 11:50 | XMS_ITS | Encounter Summary ---
Author Organization [facility] Address [address] [place] [address] Care Team Providers Care Art Studio Teacher Name Role Phone Yanira Lr Primary Care Provider [phone] Encounter Details Date Type Department Care Team ([facility] Contact Info) Description 12/27/2024 Telephone [facility] [address] [place] [address] [phone] Social Science Teacher: Makeda Eddy LPN [facility] [place] [place] Social History Tobacco Use Types Packs/Day [...] Telephone Encounter - Makeda Wooten LPN - 12/27/2024 9:43 AM EST His insurance will no longer cover the eszopiclone. He would like to know what else he can take forsleep. Please advise. documented in this encounter Plan of Treatment Upcoming Encounters Date Type Department Care Team (Late st Contact Info) Description 04/22/2025 10:00 AM EDT Office Visit [facility] [address] [place] [phone] Social Science Teacher: Jenaro Dyson MD PhD [address] [place] [phone] 06/14/2025 9:30 AM EDT Infusion [facility] at [address] [address] documented as of this encounter Visit Diagnoses Not on filedocumented in this encounter Care Teams Art Studio Teacher Relationship Specialty Start Date End Date Yanira Lr [address] [place] [address] PCP - General 04/16/24 documented as of this encounter
--- OUTSIDE RECORDS SUMMARY | 2025-01-03 11:50 | XMS_ITS | Clinical Summary ---
Author Organization [employer] Address [address] [facility] 7t [place] [address] Care Team Providers Care Manufacturing Planner Name Role Phone Yanira Lr MD Primary Care Provider [phone] Allergies No known active allergies Medications eszopiclone (Lunesta) 3 MG tablet TAKE 1 TABLET BY MOUTH ONCE DAILY. TAKE IMMEDIATELY BEFORE BEDTIME. 03/20/20 24 Active DayVigo 10 MG tablet Take 10 mg by mouth if needed at bedtime for sleep. Active modafinil (Provigil) 200 MG tablet Take 200 mg by mouth Once per day. Active Valerian 250 MG capsule Take 250 mg by mouth if needed at bedtime (insomnia). 336 capsule 1 04/13/20 24 Active valACYclovir (Valtrex) 500 MG tablet TAKE 2 TABLETS BY MOUTH TWICE DAILY FOR 5 DAYS FOR EACH OUTBREAK 30 tablet 5 12/12/19 25 Active Sodium Fluoride (PreviDent 5000 Booster Plus) 1.1 % paste Apply 1 Application. to teeth 2 times daily. 112 g 3 02/14/20 24 025 Discontinued( erapy completed) amitriptyline (Elavil) 25 MG tablet Take 25 mg by mouth at bedtime. 02/29/20 24 025 Discontinued( erapy completed) Sodium Fluoride (PreviDent 5000 Booster Plus) 1.1 % paste Apply 1 Application. to teeth 2 times daily. 112 g 3 05/18/20 24 2 025 Discontinued( erapy completed) Sodium Fluoride (PreviDent 5000 Booster Plus) 1.1 % paste Apply 1 Application. to teeth 2 times daily. 112 g 3 05/21/20 24 025 Discontinued( erapy completed) valACYclovir (Valtrex) 500 MG tablet TAKE 2 TABLETS BY MOUTH TWICE DAILY FOR 5 DAYS FOR EACH OUTBREAK 30 tablet 11/28/19 25 025 Discontinued(Re order (will not trigger notification to Pharmacy)) Active Problems Problem Noted Date Diagnosed Date MS (multiple sclerosis) 12/20/2024 Generalized anxiety disorder 04/13/2024 Moderate episode of recurrent major depressive d isorder 04/13/2024 Psychophysiological insomnia 04/13/2024 Assessment & Plan (04/16/2024 7:59 AM EDT): Add Valerian to his regimen Try to get out of bed for a greater portion of the day to promote day/night cycles and fatigue at night Anxiety and depression 01/06/2021 Impaired functional mobility, balance, gait, and endurance 10/07/2020 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, 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/21/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 07/21/2018 Recurrent major depression in remission 06/29/20 18 Assessment & Plan (04/16/2024 7:59 AM EDT): Has BH referral from neurology Does not feel he wants to engage because it may be more depressing Relapsing remitting multiple sclerosis 8 Assessment & Plan (04/16/2024 7:58 AM EDT): Sees Dr Peacock at [facility] neurology On Ocrevus after failing multiple other trials Imaging f/u every year, visit q6 months Encounters Date Type Department Care Team Description 01/03/2025 10:30 AM EST Office Visit [facility] [address] [place] [address] Familia Lilly DMD 12/31/2024 Telephone [facility] [address] [place] [phone] Yanira Lr MD Lab Orders 12/28/2024 Orders Only [facility] [address] [place] [phone] Yanira rL MD Relapsing remitting multiple sclerosis (CMS/HCC) (Primary Dx); Psychophysiological insomnia 12/27/2024 Travel 12/24/2024 1:30 PM EST Office Visit [facility] [address] [place] [address] Familia Lilly, DMD 12/20/2024 3:00 PM EST Office Visit [facility] [address] [place] [address] Angy Lawson Dental plaque (Primary Dx) 12/20/2024 2:30 PM EST Office Visit [facility] [address] [place] [address] Familia Lilly, DMD 12/20/2024 Travel 12/19/2024 Telephone [facility] [address] [place] [address] Yanira Lr MD Lab Orders 12/12/2024 Refill [facility] [address] [place] [address] Yanira Lr MD 12/11/2024 Refill [facility] [address] [place] [phone] Yanira Lr MD 11/27/[address] [address] Yanira Lr MD 11/20/2024 Patient Outreach [address] [address] Yanira Lr MD Pre-visit Planning (SDOH screening negative and tobacco screening negative) 11/07/[address] [address] Mary Jerez MA RS APPT 10/16/[address] [address] Mary Jerez MA RECALL from Last 3 Months Immunizations Name Administration Dates Next Due Influenza injectable quadrivalent preservative f ree 08/03/2020 Social History Tobacco Use Types Packs/Day Years Used Date Smoking Tobacco: Never Smokeless Tobacco: Never Tobacco Cessation:Counseling Given: Not Answered Alcohol Answer Date Recorded Frequency of Alcohol [...] Orientation Straight 08/30/2022 10 :31 AM EDT Last Filed Vital Signs Vital Sign Reading Time Taken Comments Blood Pressure 122/74 12/24/2024 1:33 PM EST Pulse 92 04/13/2024 2:04 PM EDT Temperature 36.4 ??C (97.5 ??F) 04/13/2024 2:04 PM ED T Respiratory Rate 23 04/13/2024 2:04 PM EDT Oxygen Saturation 99% 04/13/2024 2:04 PM EDT Inhaled Oxygen Concentration - - Weight 78 kg (172 lb) 04/13/2024 2:04 PM EDT Height 180.3 cm (5' 11 ) 04/13/2024 2:04 PM EDT Body Mass Index 23.99 04/13/2024 2:04 PM EDT Plan of Treatment Upcoming Encounters Date Type Department Care Team (Late st Contact Info) Description 02/13/2025 3:45 PM EDT Office Visit [facility] [address] [place] [address] Yanira Lr MD [address] [place] [address] 06/25/2025 10:00 AM EDT Office Visit [facility] [address] [place] [address] Renny, Angy [address] [place] [address] Health Maintenance Due Date Last Done Comments Family Planning (PISQ) 2001 Hepatitis B Vaccines (1 of 3 - 19+ 3-dose series) 2005 COVID-19 Vaccine ( season) 2024 03/26/2021, 02/26/2021 Influenza Vaccine (#1) 2024 08/03/2020, 2015 Dental Oral Exam 10/06/2024 04/05/2024, 02/24/2017 Depression Monitoring (PHQ-9) 10/13/2024 04/13/2024, 04/13/2024 Dental X-Ray: Bitewings 04/06/2025 04/05/20 24, 02/14/2024, 02/24/2017, Additional history exists Alcohol/Substance Use Screening 04/13/2025 04/13/2024 Depression Screening 04/13/2025 04/13/2024, 04/13/20 Dental Prophylaxis 06/20/2025 12/20/2024, 0 04/05/2024, 02/24/2017 SDOH Screening 11/20/2025 11/20/2024 Tobacco Screening 01/03/2026 01/03/2025 Dental X-Ray: Full Mouth 04/06/2027 04/05/2024, 01/30 Lipid Panel 04/13/2029 04/13/2024 DTaP/Tdap/Td Vaccines (3 - Td or Tdap) 06/08/2034 06/08/2024, 06/29/2016 Zoster Vaccines (1 of 2) 2036 RSV Patients and Patients Aged 60 years or older (1 - 1-dose 75+ series) 2061 Pneumococcal Vaccine: Pediatrics (0 to 5 Years) and At-Risk Patients (6 to 49) Years) Aged Out 12/16/2015 No longer eligible based on patient's age to complete this topic HIV Screening Completed 04/13/2024 Hepatitis C Screening Completed 04/13/2024 HIB Vaccines Aged Out No longer eligi ble based on patient's age to complete this topic HPV Vaccines Aged Out No longer eligi ble based on patient's age to complete this topic Hepatitis A Vaccines Aged Out No long er eligible based on patient's age to complete this topic IPV Vaccines Aged Out No longer eligi ble based on patient's age to complete this topic Meningococcal Vaccine Aged Out No charlie chioma eligible based on patient's age to complete this topic RSV under 20 months Aged Out No longe r eligible based on patient's age to complete this topic Rotavirus Vaccines Aged Out No longer eligible based on patient's age to complete this topic Procedures Procedure Name Priority Date/Time Associated Diagnosis Comments CASE PRESENTATION, DETAILED AND EXTENSIVE TREATMENT PLANNING Routine 01/03/2025 10:30 AM EST 19 MANDIBULAR PARTIAL DENTURE - RESIN BASE (INCLUDING, RETENTIVE/CLASPING MATERIALS, RESTS, AND TEETH) Routine 01/03/2025 10:30 AM EST CASE PRESENTATION, DETAILED AND EXTENSIVE TREATMENT PLANNING Routine 12/24/2024 1:30 PM EST 8 L(V) RESIN-BASED COMPOSITE - 1 SURF, ANTERIOR Routine 12/24/2024 1:30 PM EST 9 L(V) RESIN-BASED COMPOSITE - 1 SURF, ANTERIOR Routine 12/24/2024 1:30 PM EST PROPHYLAXIS - ADULT Routine 12/20/2024 3 :00 PM EST Dental plaque WAX TRY IN Routine 12/20/2024 3:00 PM EST CASE PRESENTATION, DETAILED AND EXTENSIVE TREATMENT PLANNING Routine 12/20/2024 3:00 PM EST Dental plaque ORAL HYGIENE INSTRUCTIONS Routine 12/20/2024 3:00 PM EST Dental plaque TOPICAL APPLICATION OF FLUORIDE VARNISH Routine 12/20/2024 3:00 PM EST Dental plaque WAX TRY IN Routine 12/20/2024 2:30 PM EST HEPATITIS C AB W/REFL TO HCV RNA, QN, PCR Routine 04/13/2024 3:00 PM EDT Healthy adult on routine physical examination HIV 1/2 ANTIGEN/ANTIBODY, FOURTH GENERATION W/RFL Routine 04/13/2024 3:00 PM EDT Healthy adult on routine physical examination LIPID PANEL, STANDARD Routine 04/13/2024 3:00 PM EDT Healthy adult on routine physical examination INTRAORAL - COMPLETE SERIES OF RADIOGRAPHIC IMAGES Routine 04/05/2024 9:00 AM EDT Dental plaque Dental calculus Encounter for dental examination Dental caries PERIODIC ORAL EVALUATION - ESTABLISHED PATIENT Routine 04/05/2024 9:00 AM EDT Dental plaque Dental calculus Encounter for dental examination Dental caries from Last 3 Months or Most Recently Relevant to Health Maintenance Results * Hepatitis C Antibody with Reflex to HCV, RNA, Quantitative, Real-Time PCR (04/13/2024 3:00 PM EDT) Hepatitis C Antibody Nonreactive Nonreactive [facility] Comment:Antibodies to HCV no t detected; does not exclude early acuteHCV infection. Blood Venous blood specimen / Unknown 04/13/2024 3:00 PM EDT 04/13/2024 4:13 PM EDT us Yanira Lr MD LAB BLOOD ORDERABLES Final Res ult [facility] [address] [place] [phone] * HIV-1/2 Antigen and Antibodies, Fourth Generation, with Reflexes (04/13/2024 3:00 PM EDT) HIV AB/AG Nonreactive Nonreactive [facility] Comment:HIV-1 p24 Ag and/or HIV-1/HIV-2 Ab not detected.A test result that is nonreactive does not exclude thepossibility of exposure to or infection with HIV-1 and/orHIV-2. Nonreactive results in this assay for individualswith prior exposure to HIV-1 and/or HIV-2 may be due toantigen and antibody levels that are below the limit ofdetection of this assay.[employer] HIV Ag/Ab Combo assay result andsupplemental assay results should be interpreted inconjunction with the patient's clinical presentation,history and other laboratory results. If the results areinconsistent with clinical evidence, additional testing issuggested to confirm the result. Blood Venous blood specimen / Unknown 04/13/2024 3:00 PM EDT 04/13/2024 4:13 PM EDT us Yanira Lr MD LAB BLOOD ORDERABLES Final Res ult [facility] [address] [place] [phone] * (ABNORMAL) Lipid Panel, Standard (04/13/2024 3:00 PM EDT) Triglycerides 92 <150 mg/dL [facility] Comment:Desirable Triglyceri de: less than 150 mg/dLBorderline High Triglyceride 150-199 mg/dLHigh Triglyceride: 200-499 mg/dLVery High Triglyceride: greater than or equal to 5OO mg/dL Cholesterol 204(H) <200 mg/dL [facility] Comment:Desirable Cholestero l: less than 200 mg/dLBorderline High Cholesterol: 200-239 mg/dLHigh Cholesterol: greater than 239 mg/dL LDL Cholesterol Calculated 146(H) <100 mg/dL [facility] Comment:Desirable LDL: less than 100 mg/dLNear Optimal/Above Optimal LDL: 110- 129 mg/dLBorderline High LDL: 130-159 mg/dLHigh LDL: 160-189 mg/dLVery High LDL: greater than or equal to 190 mg/dL HDL Cholesterol 40(L) >40 mg/dL [facility] Comment:Desirable HDL: great er than 40 mg/dL Note: This HDL assay may give artificially low results in patients with liver disease. Blood Venous blood specimen / Unknown 04/13/2024 3:00 PM EDT 04/13/2024 4:13 PM EDT us Yanira Lr MD LAB BLOOD ORDERABLES Final Res ult [facility] [address] [place] [address] [phone] from Last 3 Months or Most Recently Relevant to Health Maintenance Insurance Care Teams Manufacturing Planner Relationship Specialty Start Date End Date Yanira Lr MD [address] [place] [address] PCP - General Family Medicine 01/24/24
--- OUTSIDE RECORDS SUMMARY | 2025-01-03 11:50 | XMS_ITS | Encounter Summary ---
Author Organization [facility] Address [address] [place] [address] Care Team Providers Care Metal Bonder Name Role Phone Yanira rL Primary Care Provider [phone] Reason for Referral * Medication Prior Authorization - Pending Review Specialty Diagnoses / Procedures Referred By Darlene patel Referred To Contact Diagnoses Multiple sclerosis (HCC) Jenaro Hernandez MD PhD [address] [place] [address] Phone: tel: fax: Referral ID Status Reason Start Date Expiration Date V isits Requested Visits Authorized [id number] Pending Review 6 6 Reason for Visit * Reason Comments Med Refill Encounter Details Date Type Department Care Team (Late st Contact Info) Description 12/29/2024 Refill [facility] [address] [place] [phone] Lithographic Retoucher Apprentice: Jenaro Dyson MD PhD [address] [place] [phone] Multiple sclerosis (HCC) (Primary Dx) Social History [...] Description 04/22/2025 10:00 AM EDT Office Visit [facility] [address] [place] [phone] Lithographic Retoucher Apprentice: Jenaro Dyson MD PhD [address] [place] [phone] 06/14/2025 9:30 AM EDT Infusion [facility] Infusion Clinic at [address] [address] documented as of this encounter Visit Diagnoses Diagnosis Multiple sclerosis (HCC)- Primary Multiple sclerosis documented in this encounter Care Teams Metal Bonder Relationship Specialty Start Date End Date Yanira Lr [address] [place] [address] PCP - General 04/16/24 documented as of this encounter
--- OUTSIDE RECORDS SUMMARY | 2025-01-03 11:50 | XMS_ITS | Encounter Summary ---
Author Organization [employer] Address [address] 7t [place] [address] Care Team Providers Care Line Cleaner Name Role Phone Yanira Lr MD Primary Care Provider [phone] Reason for Visit * Reason Comments Filling Encounter Details Date Type Department Care Team ([facility] st Contact Info) Description 12/24/2024 1:30 PM EST Office Visit [facility] ADULT DENTAL [address] [place], [place] [phone] Familia Lilly, BRE [address] [place], [place] [phone] Social History Tobacco Use Types Packs/Day Years [...] Pressure 122/74 12/24/2024 1:33 PM EST Pulse - - Temperature - - Respiratory Rate - - Oxygen Saturation - - Inhaled Oxygen Concentration - - Weight - - Height - - Body Mass Index - - documented in this encounter Progress Notes * Familia Lilly DMD - 12/24/2024 1:30 PM EST Teeth#8,9: No L.A., existed unsounded enamel is being excavated, Gluma placed, etch and garcia, composite A-2 is packed, carved, and smoothed, occlusion check. Pt satisfied Inform pt be gentle biting on these fillings NV: Delivery of /P Kelly documented in this encounter Plan of Treatment Upcoming Encounters Date Type Department Care Team (Late st Contact Info) Description 02/13/2025 3:45 PM EDT Office Visit [facility] MEDICINE [address] [place] [address] Yanira Lr MD [address] [place] [address] 06/25/2025 10:00 AM EDT Office Visit [facility] ADULT DENTAL [address] [place] [address] Angy Lawson [address] [place] [address] documented as of this encounter Procedures Procedure Name Priority Date/Time Associated Diagnosis Comments 8 L(V) RESIN-BASED COMPOSITE - 1 SURF, ANTERIOR Routine 12/24/2024 1:30 PM EST 9 L(V) RESIN-BASED COMPOSITE - 1 SURF, ANTERIOR Routine 12/24/2024 1:30 PM EST CASE PRESENTATION, DETAILED AND EXTENSIVE TREATMENT PLANNING Routine 12/24/2024 1:30 PM EST documented in this encounter Visit Diagnoses Not on filedocumented in this encounter Additional Health Concerns Assessment Noted Time PHQ-9 Depression Total Score: 17 0614/2 024 3:51 PM EDT documented as of this encounter Care Teams Line Cleaner Relationship Specialty Start Date End Date Yanira Lr MD [address] [place] [address] PCP - General Family Medicine 01/24/24 documented as of this encounter
--- OUTSIDE RECORDS SUMMARY | 2025-01-03 11:50 | XMS_ITS | Encounter Summary ---
Author Organization [employer] Address [address] 7[address] [place] [address] Care Team Providers Care Cra Officer Name Role Phone Yanira Lr MD Primary Care Provider [phone] Reason for Visit * Reason Onset Date Comments Lab Orders 12/19/2024 Encounter Details Date Type Department Care Team ([facility] st Contact Info) Description 12/19/2024 Telephone [facility] [address] [place], [place] [phone] Yanira Lr MD [address] [place], [place] [phone] Lab Orders Social History Tobacco Use Types Packs/Day Years [...] AM EDT documented as of this encounter Miscellaneous Notes * Telephone Encounter - Jamie oRche RN - 12/19/2024 9:34 AM EST Good morning, Please see below. Patient requesting routine labs prior to appt in January so labs can be discussed at appt. Patient just wants to see if everything is normal. Doesn't report specific concerns. Please review and advise. * Telephone Encounter - Angy Lobo - 12/19/2024 9:25 AM EST Tc from pt requesting lab work. No specific lab order requested. Pt would like basic general labs. Contact pt at [phone] ([email or web address]) documented in this encounter Plan of Treatment Upcoming Encounters Date Type Department Care Team (Late st Contact Info) Description 02/13/2025 3:45 PM EDT Office Visit [facility] [address] [place] [address] Yanira Lr MD [address] [place] [address] 06/25/2025 10:00 AM EDT Office Visit [facility] ADULT DENTAL [address] [place] [address] Angy Lawson [address] [place] [address] documented as of this encounter Visit Diagnoses Not on filedocumented in this encounter Additional Health Concerns Assessment Noted Time PHQ-9 Depression Total Score: 17 0614/2 024 3:51 PM EDT documented as of this encounter Care Teams Cra Officer Relationship Specialty Start Date End Date Yanira Lr MD [address] [place] [address] PCP - General Family Medicine 01/24/24 documented as of this encounter
--- OUTSIDE RECORDS SUMMARY | 2025-01-03 11:50 | XMS_ITS | Encounter Summary ---
Author Organization [employer] Address [address] 7[address] [place] [address] Care Team Providers Care Lab Animal Technician Name Role Phone Yanira Lr MD Primary Care Provider [phone] Reason for Visit * Reason Onset Date Comments Lab Orders 12/31/2024 Encounter Details Date Type Department Care Team ([facility] st Contact Info) Description 12/31/2024 Telephone [facility] MED[facility]INE [address] [place], [place] [phone] Yanira Lr MD [address] [place], [place] [phone] Lab Orders Social History Tobacco Use Types [...] encounter Miscellaneous Notes * Telephone Encounter - Mary Jerez MA - 12/31/2024 9:17 AM EST T/c placed to pt to notify that PCP ordered labs and if he could get them done in mid December so theycan be all set for his upcoming appt in January. Pt understood and had no questions. documented in this encounter Plan of Treatment Upcoming Encounters Date Type Department Care Team (Late st Contact Info) Description 02/13/2025 3:45 PM EDT Office Visit [facility] MEDICINE [address] [place] [address] Yanira Lr MD [address] [place] [address] 06/25/2025 10:00 AM EDT Office Visit [facility] ADULT DENTAL [address] [place] [address] Angy Lawson [address] [place] [address] documented as of this encounter Visit Diagnoses Not on filedocumented in this encounter Additional Health Concerns Assessment Noted Time PHQ-9 Depression Total Score: 17 024 3:51 PM EDT documented as of this encounter Care Teams Lab Animal Technician Relationship Specialty Start Date End Date Yanira Lr MD [address] [place] [address] PCP - General Family Medicine 01/24/24 documented as of this encounter
--- OUTSIDE RECORDS SUMMARY | 2025-01-03 11:50 | XMS_ITS | Encounter Summary ---
Author Organization [facility] Address [address] [place] [address] Care Team Providers Care Tool And Die Machinist Name Role Phone Yanira Lr Primary Care Provider [phone] Reason for Visit * Reason Onset Date Comments PAC Appt Request - Established 12/11/2024 Encounter Details Date Type Department Care Team (Late st Contact Info) Description 12/11/2024 Telephone [facility] at [address] [address] Telephone Intake, Staff PAC Appt Request - Established Social History Tobacco Use Types Packs/Day Years [...] encounter Miscellaneous Notes * Telephone Encounter - Laura Villalobos - 12/11/2024 9:35 AM EST Pt called back to check status. * Telephone Encounter - Manny Skaggs - 12/11/2024 8:59 AM EST PT called to reschedule the infusion he was supposed to have today 12/11. Contact PT at [phone] documented in this encounter Plan of Treatment Upcoming Encounters Date Type Department Care Team (Late st Contact Info) Description 04/22/2025 10:00 AM EDT Office Visit [facility] S[facility] Clinic [address] [place] [address] Automotive Engineering Teacher: Jenaro Dyson MD PhD [address] [place] [address] 06/14/2025 9:30 AM EDT Infusion [facility] at [address] [address] documented as of this encounter Visit Diagnoses Not on filedocumented in this encounter Care Teams Tool And Die Machinist Relationship Specialty Start Date End Date Yanira Lr [address] [place] [address] PCP - General 04/16/24 documented as of this encounter
--- OUTSIDE RECORDS SUMMARY | 2025-01-03 11:50 | XMS_ITS | Encounter Summary ---
Author Organization [employer] Address [address] 7[address] [place] [address] Care Team Providers Care Percussion Instrument Repairer Name Role Phone Yanira Lr MD Primary Care Provider [phone] Encounter Details Date Type Department Care Team (Latest Contact Info) Description 12/27/2024 Travel Social History Tobacco Use Types Packs/Day [...] Description 02/13/2025 3:45 PM EDT Office Visit [facility] MED[facility]INE [address] [place] [address] Yanira Lr MD [address] [place] [address] 06/25/2025 10:00 AM EDT Office Visit [facility] ADULT DENTAL [address] [place] [address] Renny, Angy [address] [place] [address] documented as of this encounter Visit Diagnoses Not on filedocumented in this encounter Additional Health Concerns Assessment Noted Time PHQ-9 Depression Total Score: 17 024 3:51 PM EDT documented as of this encounter Care Teams Percussion Instrument Repairer Relationship Specialty Start Date End Date Yanira Lr MD [address] [place] [address] PCP - General Family Medicine 01/24/24 documented as of this encounter
--- OUTSIDE RECORDS SUMMARY | 2025-01-03 11:50 | XMS_ITS | Encounter Summary ---
Author Organization [facility] Address [address] [place] [address] Care Team Providers Care Beverage Specialist Name Role Phone Yanira Lr Primary Care Provider [phone] Encounter Details Date Type Department Care Team (Late Contact Info) Description 12/11/2024 Telephone [facility] Sclerosis [facility] [address] [place] [phone] Filter Operator: Makeda Eddy LPN [place], [place] Social History Tobacco Use Types Packs/Day [...] Telephone Encounter - Makeda Wooten LPN - 12/11/2024 10:08 AM EST Lakshmi canceled his infusion appt for today and rescheduled in 2 weeks documented in this encounter Plan of Treatment Upcoming Encounters Date Type Department Care Team (Late st Contact Info) Description 04/22/2025 10:00 AM EDT Office Visit [facility] Sclerosis Clinic [address] [place] [address] Filter Operator: Jenaro Dyson MD PhD [address] [place] [address] 06/14/2025 9:30 AM EDT Infusion [facility]fusion [facility] at [address] [address] documented as of this encounter Visit Diagnoses Not on filedocumented in this encounter Care Teams Beverage Specialist Relationship Specialty Start Date End Date Yanira Lr 230 [place] [address] PCP - General 04/16/24 documented as of this encounter
--- OUTSIDE RECORDS SUMMARY | 2025-01-03 11:51 | XMS_ITS | Encounter Summary ---
Author Organization [employer] Address [address] [place] [address] Care Team Providers Care Kennel Manager Dog Track Name Role Phone Yanira Lr MD Primary Care Provider [phone] Reason for Visit * Reason Comments Med Refill Encounter Details Date Type Department Care Team ([facility] st Contact Info) Description 12/11/2024 Refill [facility] MED[facility]INE [address] [place], [place] [phone] Yanira Lr MD [address] [place], [place] [phone] Social History Tobacco Use Types Packs/Day Years [...] Description 02/13/2025 3:45 PM EDT Office Visit [facility] MED[facility]INE [address] [place] [address] Yanira Lr MD [address] [place] [address] 06/25/2025 10:00 AM EDT Office Visit [facility] ADULT DENTAL [address] [place] [address] RennyZhangAngy [address] [place] [address] documented as of this encounter Visit Diagnoses Not on filedocumented in this encounter Additional Health Concerns Assessment Noted Time PHQ-9 Depression Total Score: 17 024 3:51 PM EDT documented as of this encounter Care Teams Kennel Manager Dog Track Relationship Specialty Start Date End Date Yanira Lr MD [address] [place] [address] PCP - General Family Medicine 01/24/24 documented as of this encounter
--- OUTSIDE RECORDS SUMMARY | 2025-01-03 11:51 | XMS_ITS | Encounter Summary ---
Author Organization [facility] Address [address] [place] [address] Care Team Providers Care Instrument And Control Service Person Name Role Phone Yanira Lr Primary Care Provider [phone] Encounter Details Date Type Department Care Team (Late Contact Info) Description 09/05/2023 LX [employer] Message [facility] ACC Building [address] [place] [address] Mychart, Generic Provider Person [facility] [place] [phone] kesimpta - insurance denial Social History Tobacco Use Types Packs/Day Years [...] Description 04/22/2025 10:00 AM EDT Office Visit [facility] Multiple Sclerosis Clinic [address] [place] [address] Lens Shaper Grinder: Jenaro Dyson MD PhD [address] [place], [place] [phone] 06/14/2025 9:30 AM EDT Infusion [facility]fusion [facility] at [address] [address] documented as of this encounter Visit Diagnoses Not on filedocumented in this encounter Care Teams Instrument And Control Service Person Relationship Specialty Start Date End Date Yanira Lr [address] [place] [address] PCP - General 04/16/24 documented as of this encounter
--- OUTSIDE RECORDS SUMMARY | 2025-01-03 11:51 | XMS_ITS | Encounter Summary ---
Author Organization [facility] Address [address] [place] [address] Care Team Providers Care Contact Person Name Role Phone Yanira Lr Primary Care Provider [phone] Encounter Details Date Type Department Care Team (Late Contact Info) Description 02/06/2024 [facility] Financial Clearance Department [address] [place] [address] Mychart, Generic [place] [address] Pharmacy Prior Authorization Social History Tobacco Use Types Packs/Day Years [...] Description 04/22/2025 10:00 AM EDT Office Visit [facility] [address] [place] [address] Wheelage Clerk: Jenaro Dyson MD PhD [address] [place] [phone] 06/14/2025 9:30 AM EDT Infusion [facility]cology and Infusion Clinic at [address] [address] documented as of this encounter Visit Diagnoses Not on filedocumented in this encounter Care Teams Contact Person Relationship Specialty Start Date End Date Yanira Lr [address] [place] [address] PCP - General 04/16/24 documented as of this encounter
--- OUTSIDE RECORDS SUMMARY | 2025-01-03 11:51 | XMS_ITS | Encounter Summary ---
Author Organization [facility] Address [address] [place] [address] Care Team Providers Care Evp Global Product Leadership Name Role Phone Yanira Lr Primary Care Provider [phone] Encounter Details Date Type Department Care Team (Late Contact Info) Description 05/15/2020 Telephone [facility] ACC Building [address] [place] [address] Tom Arreola CPhT Social History Tobacco Use Types Packs/Day Years [...] Orientation Straight 09/07/2021 3: 19 AM EST documented as of this encounter Plan of Treatment Upcoming Encounters Date Type Department Care Team (Late Contact Info) Description 04/22/2025 10:00 AM EDT Office Visit [facility] Multiple Sclerosis Clinic [address] [place] [address] Informatics Spec: Jenaro Dyson MD PhD [address] [place] [address] 06/14/2025 9:30 AM EDT Infusion [facility] Oncology and Infusion Clinic at [address] [address] documented as of this encounter Visit Diagnoses Not on filedocumented in this encounter Care Teams Evp Global Product Leadership Relationship Specialty Start Date End Date Yanira Lr [address] [place] [address] PCP - General 04/16/24 documented as of this encounter
--- OUTSIDE RECORDS SUMMARY | 2025-01-03 11:51 | XMS_ITS | Encounter Summary ---
Author Organization [employer] Address [address] 7[address] [place] [address] Care Team Providers Care Risk Management Intern Name Role Phone Yanira Lr MD Primary Care Provider Reason for Visit * Reason Onset Date Comments Medication Question 12/12/2024 Encounter Details Date Type Department Care Team ([facility] st Contact Info) Description 12/12/2024 Refill [facility] [address] [place], [place] [phone] Yanira Lr MD [address] [place] [address] Social History Tobacco Use Types Packs/Day Years [...] encounter Miscellaneous Notes * Telephone Encounter - Yamini Adasm RN - 12/12/2024 9:56 AM EST TC returned to patient [phone] in regards to below message. Patient reports he would like PCP to send a new RX to the pharmacy for valtrex for patient to be able to obtain more at the pharmacy when needed. Patient confirms he still has medication however RX does not have any refills. Patient informed RN will send request to PCP. Patient to f/u PRN. * Telephone Encounter - Megan Kitchen - 12/12/2024 9:25 AM EST Tc from pt requesting status of medication valACYclovir (Valtrex) 500 MG tablet documented in this encounter Plan of Treatment Upcoming Encounters Date Type Department Care Team (Late st Contact Info) Description 02/13/2025 3:45 PM EDT Office Visit [facility] MED[facility] [address] [place] [address] Yanira Lr MD [address] [place] [address] 06/25/2025 10:00 AM EDT Office Visit [facility] ADULT DENTAL [address] [place] [address] Zhang Lawsonaris [address] [place] [address] documented as of this encounter Visit Diagnoses Not on filedocumented in this encounter Additional Health Concerns Assessment Noted Time PHQ-9 Depression Total Score: 17 024 3:51 PM EDT documented as of this encounter Care Teams Risk Management Intern Relationship Specialty Start Date End Date Yanira Lr MD [address] [place] [address] PCP - General Family Medicine 01/24/24 documented as of this encounter
[2025-01-03 11:52] LABS: Eosinophils Percent Auto 0.9 % (0-4); Hematocrit 46.9 % (42.0-52.0); Hemoglobin 15.4 g/dl (14.0-18.0); Imm Gran Abs Auto 0.02 X10*3/uL (0.00-0.03); Imm Gran Pct Auto 0.3 % (0.0-0.4); Lymphocytes Absolute Auto 2.1 X10*3/uL (1.2-4.9); Lymphocytes Percent Auto 29.4 % (20-40); Mean Corpuscular HGB Conc 32.8 g/dl (31.0-36.0); Mean Corpuscular Hemoglobin 29.9 pg (27.0-33.0); Mean Corpuscular Volume 91.1 fL (80.0-98.0); Mean Platelet Volume 10.8 fL (9.4-12.4); Monocytes Percent Auto 7.7 % (2-11); Neutrophils Absolute Auto 4.2 x10*3/uL (2.0-8.3); Neutrophils Percent Auto 60.7 % (45-73); Platelet Count 243 X10*3/uL (160-400); Red Blood Count 5.15 X10*6/uL (4.60-5.80); Red Cell Distribution Width 11.7 % (11.0-16.0)
[2025-01-03 11:53] LABS: Basophils Absolute Auto 0.1 X10*3/uL (0.0-0.2); Eosinophils Absolute Auto 0.1 X10*3/uL (0.0-0.4); Monocytes Absolute Auto 0.5 X10*3/uL (0.1-1.2)
[2025-01-03 12:16] LABS: Alanine Aminotransferase 20 U/L (0-40); Albumin Level 4.4 g/dL (3.5-5.0); Alkaline Phosphatase 92 U/L (39-117); Anion Gap 10 (12-20); Aspartate Amino Transferase 18 U/L (5-37); Bilirubin Total 0.5 mg/dL (0.0-1.0); Blood Urea Nitrogen 7 mg/dL (9-16); Calcium 9.2 mg/dL (8.4-10.2); Carbon Dioxide 28 mmol/L (22-29); Chloride 109 mmol/L (96-108); Cholesterol 184 mg/dL (<200); Estimated Glomerular Filt Rate > 60; Glucose Random 98 mg/dL (60-115); HDL Cholesterol 43 mg/dL (>40); LDL Cholesterol Calculated 114 mg/dL (<100); Potassium 4.7 mmol/L (3.3-5.1); Sodium 142 mmol/L (135-145); Total Protein 6.8 g/dL (6.5-8.0); Triglycerides 137 mg/dL (<150)
[2025-01-03 12:37] LABS: TSH reflex Free T4 2.02 uIU/mL (0.32-4.0)
== END 2025-01-03 10:08 | disposition home or self-care (01) ==
LOC: HO.HHCL 10:07
PROVIDERS: Visit Provider General Practice
DX: G35 Multiple sclerosis (principal); F51.04 Psychophysiologic insomnia; Z13.6 Encounter for screening for cardiovascular disorders
CPT/HCPCS: 36415; 80053; 80061; 84443; 85025

== ENCOUNTER → 2025-05-07 07:45 | Outpatient (REF) | payer OTHER, SELFPAY ==
--- OUTSIDE RECORDS SUMMARY | 2025-05-07 07:47 | XMS_ITS | Clinical Summary ---
Author Organization [facility] Address [address] [place] [address] Care Team Providers Care Victim Advocate Name Role Phone Yanira Lr Primary Care Provider [phone] Allergies No known active allergies Medications melatonin 3 mg tablet Take by mouth nightly. Active lemborexant (Dayvigo) 10 mg tablet TAKE 1 TABLET BY MOUTH NIGHTLY NEEDED FOR INSOMNIA 30 tablet 5 5 Active modafiniL (PROVIGIL) 200 mg tabletIndicatio ns:Multiple sclerosis (HCC) Take 1 tablet by mouth once daily 30 tablet 5 5 Active eszopiclone (LUNESTA) 1 mg tablet Take 3 tablets (3 mg total) by mouth nightly. 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, right 07/21/2018 Multiple sclerosis 04/24/2018 Encounters Date Type Department Care Team Description 04/30/2025 Refill [facility] Multiple Sclerosis Clinic [address] [place] [address] Windows Systems Admin: Jenaro Dyson MD PhD 04/22/2025 10:00 AM EDT Telehealth [facility] Sclerosis [facility] [address] [place] [address] Windows Systems Admin: Jenaro Dyson MD PhD Multiple sclerosis (HCC) (Primary Dx); Primary insomnia 04/22/2025 Orders Only [facility] Sclerosis [facility] [address] [place] [address] Windows Systems Admin: Jenaro Dyson MD PhD from Last 3 [...] 97 12/14/2024 10:23 AM EST Temperature 36.6 C (97.9 F) 12/14/2024 10:23 AM EST Respiratory Rate 17 12/14/2024 10:23 AM EST Oxygen Saturation 97% 12/14/2024 10:23 AM EST Inhaled Oxygen Concentration - - Weight 81.4 kg (179 lb 6.4 oz) 12/14/2024 10:23 AM EST Height 180.3 cm (5' 11 ) 02/07/2019 10:36 AM EDT Body Mass Index 25.02 02/07/2019 10:36 AM EDT Plan of Treatment Upcoming Encounters Date Type Department Care Team (Late st Contact Info) Description 10/28/2025 8:00 AM EST Telehealth [facility] Multiple Sclerosis Clinic [address] [place] [address] Windows Systems Admin: Jenaro Dyson MD PhD [address] [place] [address] Health Maintenance Due Date Last Done Comments Varicella Vaccines (1 of 2 - 13+ 2-dose series) 1999 Hepatitis B Vaccines (1 of 3 - 19+ 3-dose series) 2005 COVID-19 Vaccine (3 - 2023-2 5 season) 2024 03/26/2021, 02/26/2021 Alcohol/Substance Use Screening 10/31/2024 Depression Screening and Follow-Up 10/31/2024 Social Drivers of Health Annual Screening 10/31/2024 Influenza Vaccine (#1) 2025 , 12/16/2015 DTaP,Tdap,and Td Vaccines (3 - Td or Tdap) 06/08/2034 06/08/2024, 06/29/2016 RSV Vaccine (60+ years old and patients) (1 - 1-dose 75+ series) 2061 Pneumococcal Vaccine: Pediatric (0-5 Years) and At-Risk Patients (6-50 Years) Aged Out 12/16/2015 No longer eligible based on patient's age to complete this topic HIV Screening Completed 04/13/2024, 04/13/2024 Hepatitis C Screening Completed 04/13/2024 , 03/17/2023, 04/26/2018 Procedures * Due to [place] NSC law, this organization might not be sharing negative HIV tests. Procedure Name Priority Date/Time Associated Diagnosis Comments HEPATITIS PANEL, ACUTE Routine 03/17/2023 8:15 AM EDT Multiple sclerosis from Last 3 Months or Most Recently Relevant to Health Maintenance Results * Due to [place] NSC law, this organization might not be sharing negative HIV tests. * Hepatitis Panel, Acute (03/17/2023 8:15 AM EDT) Hepatitis A IgM NON-REACT SHANNON NON-REACT SHANNON 03/17/2023 5:22 PM EDT [facility] Hepatitis B Surface Antigen NON-REACT SHANNON NON-REACT SHANNON 03/17/2023 5:22 PM EDT [facility] Hepatitis B Core Antibody NON-REACT SHANNON NON-REACT SHANNON 03/17/2023 5:22 PM EDT [facility] Hepatitis C Antibody NON-REACT SHANNON NON-REACT SHANNON 03/17/2023 5:22 PM EDT [facility] Signal To Cut-Off 0.04 <1.00 03/17/2023 5:22 PM EDT [facility] Comment: HCV antibody was non-reactive. There is no laboratory evidence of HCV infection. In most cases, no further action is required. However, if recent HCV exposure is suspected, a test for HCV RNA (test code 05629) is suggested. For additional information please refer to http://Táximo.Nutzvieh24/faq/WVK52f3 (This link is being provided for informational/ educational purposes only.) For additional information, please refer to http://Táximo.Nutzvieh24/faq/SBG233 (This link is being provided for informational/ educational purposes only.) Blood Structure of peripheral vein / Unknown Venipuncture / Unknown 03/17/2023 8:15 AM EDT 03/17/2023 8:38 AM EDT [facility] - 03/17/2023 5:22 PM EDT [facility] Received Date: Jenaro Hernandez MD PhD LAB BLOOD ORDERABLES Fi nal Result [place] [address]rd [address], [place] [address], [facility] [address] [facility] [address], [place] [address], from Last 3 Months or Most Recently Relevant to Health Maintenance Insurance [facility] Advance Directives Documents on File Type Date Recorded Patient Derrick Operator Expl [facility] Care Proxy 07/28/2018 1:00 PM 07/28 * Full Code (Latest Code Status on File) Date Activated Date Inactivated Comments 07/27/2018 4:47 PM 07/28/2018 3:58 PM Care Teams Victim Advocate Relationship Specialty Start Date End Date Yanira Lr [address] [place] [address] PCP - General 04/16/24
--- OUTSIDE RECORDS SUMMARY | 2025-05-07 07:47 | XMS_ITS | Patient Health Record ---
Author Organization [email or web address] Address [address] [facility] [address] [place] [id number] Care Team Providers [facility] Professor Name Role Phone Justin MURILLO, Cruz Primary Care Provider JEMIMA Colon Unavailable [phone] Reason For Referral No Information Medications Medication SIG (Take, Route, Frequency, Duration) Notes Start Date End Date Status Mirtazapine 7.5 MG 1 tablet at bedtime Orally Once a day; Duration: 30 day(s) 01/12/2021 Active Ambien 5 MG [...] 1000 MCG 1 tablet Orally Once a day; Duration: 30 day(s) Active Social History Tobacco Use: [...] Problem Status W/U Status Risk Notes Problem Generalized anxiety disorder (79869693) Generalized anxiety disorder (F41.1) Active confirmed Problem Multiple sclerosis (80491057) MS (multiple sclerosis) (G35) Active confirmed Problem Moderate recurrent major depression (69911512) Moderate episode of recurrent major depressive 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) Active confirmed Problem Insomnia disorder related to another mental disorder (45762383) Psychophysiological insomnia (F51.04) Active confirmed Plan Of Treatment No Information Insurance Providers Payer Name Payer Address Payer Phone Subscriber Number Group Number Insured Name Patient Relationship to Insured Coverage Start Date Coverage End Date [facility] [address] [place] [phone] [id number] Alon Croft Self - patient is the insured Medical (General) History Medical History History ICD Code Multiple Scelerosis Surgical History Surgery Date(Month/Year) Hospitalization History Reason Date(Month/Year) ms
== END ==
LOC: HO.SL 07:45
PROVIDERS: PCP General Practice; Visit Provider General Practice
DX: G35 Multiple sclerosis (principal); R40.0 Somnolence; R06.83 Snoring
CPT/HCPCS: 95806

== ENCOUNTER → 2025-05-07 21:00 | Outpatient (BNV) | payer OTHER, SELFPAY | PROVIDERS: PCP General Practice; Visit Provider Internal Medicine | DX: R06.83 Snoring (principal) | CPT/HCPCS: 95806 ==